=== PATIENT | female | born 1960 | race Hispanic/Latino ===

== ENCOUNTER 2018-10-21 21:04 | Emergency (ER) | payer BC, SELFPAY ==
[2018-10-21 23:17] LABS: #Basophils 0.1 thou/uL (0.0-0.2); #Eosinphils 0.1 thou/uL (0.0-0.7); #Lymphocytes 3.4 thou/uL (1.20-3.40); #Monocytes 0.5 thou/uL (0.11-0.59); #Neutrophils 4.7 thou/uL (1.40-6.50); %Basophils 0.8 % (0.0-1.0); %Eosinophils 1.6 % (0.0-10.0); %Lymphocytes 38.3 % (21.0-51.0); %Monocytes 5.7 % (0.0-10.0); %Neutrophils 53.6 % (42.0-75.0); Hemoglobin 12.3 g/dL (12.0-16.0); Mean Corpuscular HGB CONC 33.7 g/dL (32.0-36.0); Mean Corpuscular Hemoglobin 27.7 pg (27.0-31.0); Mean Corpuscular Volume 82.1 fL (78.0-98.0); Mean Platelet Volume 7.5 fL (7.4-10.4); Platelet Count 249 thou/uL (130-400); RBC Distribution Width 12.4 % (11.5-14.5); Red Blood Cell (RBC) Count 4.45 mill/uL (4.20-5.40); White Blood Cell (WBC) Count 8.8 thou/uL (4.8-10.8)
[2018-10-21 23:43] LABS: ALT (SGPT) 13 U/L (8-55); AST (SGOT) 19 U/L (5-34); Albumin 3.7 g/dL (3.5-5.0); Alkaline Phosphatase 95 U/L (40-150); Anion Gap 12 mmol/L (10-20); BUN (Urea Nitrogen) 13 mg/dL (9.8-20.1); Bilirubin, Total 0.4 mg/dL (0.2-1.2); Calc. Creatinine Clearance 0 mL/min (70-130); Calcium 9.6 mg/dL (7.8-10.44); Carbon Dioxide 25 mmol/L (22-29); Chloride 98 mmol/L (98-107); Estimated GFR-MDRD 85; Globulin 3.4 g/dL (2.4-3.5); Glucose 156 mg/dL (70-105); Lipase 18 U/L (8-78); Potassium 4.1 mmol/L (3.5-5.1); Protein, Total 7.1 g/dL (6.0-8.3); Sodium 131 mmol/L (136-145)
--- NOTE | 2018-10-21 23:45 | RAD ---
LEFT SHOULDER THREE VIEWS: 10/21/18 HISTORY: 57-year-old female with history of left shoulder and arm pain. FINDINGS/IMPRESSION: Degenerative changes of the left AC joint and glenohumeral joint without acute fracture or dislocatio n or other acute process. POS: LINDA
--- NOTE | 2018-10-21 23:59 | CT ---
ABDOMEN AND PELVIC CT SCAN WITH IV CONTRAST: 10/21/18 HISTORY: 57-year-old female with history of left sided abdominal pain from the feeding tube. In the left lung base there is some patchy ground glass opacity changes, this is nonspecific but coul d possibly represent some mild or early pneumonitis. Status post cholecystectomy. Liver, pancreas, an d spleen appear unremarkable. There is a tiny punctate calcific focus in the left kidney possibly a s mall renal vascular calcification or a nonobstructing left renal calculus. No evidence for obstructin g calculus. Gastrostomy tube in place with the tip in the region of the stomach. Urinary bladder a nd uterus and adnexal regions appear unremarkable. No free intraperitoneal fluid or evidence for miranda opathy or abscess. IMPRESSION: Minimal patchy ground glass opacity changes in the left lower lobe, nonspecific which could conceivab ly represent a small or early patch of pneumonia or pneumonitis. Tiny left renal calcification possib ly a vascular calcification or tiny nonobstructing renal calculus. Gastrostomy tube in place within t he stomach. Postop cholecystectomy. No CT evidence for acute appendicitis although a normal appendix is not anatomically demonstrated. No other significant acute process. POS: LINDA
[2018-10-22 00:39] LABS: Bilirubin Negative (Negative); Blood, Urine Trace (Negative); Clarity CLEAR (Clear); Glucose, Urine (Dipstick) Negative (Negative); Leukocyte Large (Negative); Nitrite Negative (Negative); Protein, Urine (Dipstick) Negative (Neg-Trace); Specific Gravity, Urine 1.033 (1.002-1.036); Urobilinogen 0.2 mg/dL (0.2-1.0); pH, Urine 6.5 (5.0-9.0)
[2018-10-22 00:41] LABS: Bacteria/HPF None Seen HPF (None Seen); Hyaline Casts/LPF 0-3 HYALINE CAST LPF (0-3 Hyaline); Pathc Cast-AUWi Flag 0.43 (0-2.49); Squamous Epithelial 0-3 HPF (0-3)
== END 2018-10-22 01:27 | disposition home or self-care (01) ==
LOC: ERS 21:04
DX: J18.9 Pneumonia, unspecified organism (principal); M19.012 Primary osteoarthritis, left shoulder; N39.0 Urinary tract infection, site not specified; E11.9 Type 2 diabetes mellitus without complications; E78.5 Hyperlipidemia, unspecified; I10 Essential (primary) hypertension; F41.9 Anxiety disorder, unspecified; Z79.84 Long term (current) use of oral hypoglycemic drugs; Z79.899 Other long term (current) drug therapy
CPT/HCPCS: 74177; 80053; 81003; 81015; 83690; 85025; 87086

== ENCOUNTER 2021-02-01 13:09 | Inpatient (IN) | payer SELFPAY ==
[2021-02-01 15:00] LABS: #Basophils 0.1 thou/uL (0.0-0.2); #Eosinphils 0.2 thou/uL (0.0-0.7); #Lymphocytes 3.7 thou/uL (1.20-3.40); #Monocytes 0.5 thou/uL (0.11-0.59); #Neutrophils 4.8 thou/uL (1.40-6.50); %Basophils 1.2 % (0.0-1.0); %Eosinophils 1.7 % (0.0-10.0); %Lymphocytes 39.8 % (21.0-51.0); %Monocytes 5.3 % (0.0-10.0); %Neutrophils 52.1 % (42.0-75.0); Mean Corpuscular HGB CONC 31.8 g/dL (32.0-36.0); Mean Corpuscular Hemoglobin 26.9 pg (27.0-31.0); Mean Corpuscular Volume 84.6 fL (78.0-98.0); Platelet Count 322 thou/uL (130-400); RBC Distribution Width 13.2 % (11.5-14.5); Red Blood Cell (RBC) Count 5.21 mill/uL (4.20-5.40); White Blood Cell (WBC) Count 9.3 thou/uL (4.8-10.8)
[2021-02-01 15:20] LABS: ALT (SGPT) 16 U/L (8-55); AST (SGOT) 20 U/L (5-34); Albumin 4.1 g/dL (3.5-5.0); Alkaline Phosphatase 110 U/L (40-110); Anion Gap 13 mmol/L (10-20); BUN (Urea Nitrogen) 33 mg/dL (9.8-20.1); Bilirubin, Total 0.6 mg/dL (0.2-1.2); Calc. Creatinine Clearance 0 mL/min (70-130); Calcium 9.6 mg/dL (7.8-10.44); Carbon Dioxide 28 mmol/L (22-29); Chloride 103 mmol/L (98-107); Glucose 115 mg/dL (70-105); Potassium 4.3 mmol/L (3.5-5.1); Protein, Total 8.1 g/dL (6.0-8.3); Sodium 140 mmol/L (136-145)
[2021-02-01 16:34] LABS: Bacteria/HPF None Seen HPF (None Seen); Bilirubin Negative (Negative); Blood, Urine Negative (Negative); Clarity Clear (Clear); Glucose, Urine (Dipstick) 150 mg/dL (Negative); Ketone, Urine 10 mg/dL (Negative); Leukocyte 25 Leu/uL (Negative); Nitrite Negative (Negative); Protein, Urine (Dipstick) Negative (Neg-Trace); RBC/HPF 0-3 HPF (0-3); Specific Gravity, Urine 1.028 (1.002-1.036); Squamous Epithelial 0-3 HPF (0-3); Urobilinogen Normal mg/dL (Less than 2); WBC/HPF 0-3 HPF (0-3); pH, Urine 5.5 (5.0-9.0)
[2021-02-01] MEDS ORDERED: Acetaminophen 650 MG Suppository PR PRN (17:42)
[2021-02-01] MEDS ORDERED: Dextrose 5% in Water 1,000 ML IV PRN (18:00)
[2021-02-01] MEDS ORDERED: Dextrose 50% Abboject 50 ML SYRINGE SLOW IVP PRN (18:00)
[2021-02-01] MEDS ORDERED: Ketorolac Tromethamine 30 MG/ML VIAL ONE (18:39)
[2021-02-01] MEDS ORDERED: Famotidine 20 MG TAB PO SCH (21:00)
[2021-02-01] MEDS ORDERED: Ketorolac Tromethamine 30 MG/ML VIAL IVP SCH (22:00)
[2021-02-01] MEDS ORDERED: Scopolamine 1.5 mg/72 hour Patch TD SCH (22:00)
[2021-02-02] MEDS ORDERED: Aspirin 300 MG Suppository PR SCH (00:15)
[2021-02-02 02:48] VITALS: BMI 21.9
[2021-02-02 04:30] LABS: SARS-CoV-2 PCR by NAA Not Detected (NotDetected)
[2021-02-02] MEDS: Dextrose 5 %-0.45 % NaCl 1,000 ML IV SCH (05:13)
[2021-02-02 05:44] LABS: #Basophils 0.1 thou/uL (0.0-0.2); #Eosinphils 0.2 thou/uL (0.0-0.7); #Lymphocytes 4.4 thou/uL (1.20-3.40); #Monocytes 0.6 thou/uL (0.11-0.59); #Neutrophils 4.7 thou/uL (1.40-6.50); %Basophils 0.8 % (0.0-1.0); %Eosinophils 1.6 % (0.0-10.0); %Lymphocytes 44.3 % (21.0-51.0); %Neutrophils 47.4 % (42.0-75.0); Hemoglobin 13.9 g/dL (12.0-16.0); Mean Corpuscular HGB CONC 32.6 g/dL (32.0-36.0); Mean Corpuscular Hemoglobin 27.2 pg (27.0-31.0); Mean Corpuscular Volume 83.5 fL (78.0-98.0); Mean Platelet Volume 8.3 fL (7.4-10.4); Platelet Count 321 thou/uL (130-400); RBC Distribution Width 13.3 % (11.5-14.5); Red Blood Cell (RBC) Count 5.12 mill/uL (4.20-5.40); White Blood Cell (WBC) Count 9.9 thou/uL (4.8-10.8)
[2021-02-02 06:00] LABS: Anion Gap 19 mmol/L (10-20); BUN (Urea Nitrogen) 42 mg/dL (9.8-20.1); Calc. Creatinine Clearance 54 mL/min (70-130); Calcium 9.5 mg/dL (7.8-10.44); Carbon Dioxide 21 mmol/L (22-29); Chloride 104 mmol/L (98-107); Cholesterol 194 mg/dl (< 200 Desired); Glucose 110 mg/dL (70-105); HDL Cholesterol 48 mg/dL (>60 Neg Risk); LDL Cholesterol, Calculated 126 mg/dL; Potassium 3.9 mmol/L (3.5-5.1); Sodium 140 mmol/L (136-145); Triglycerides 100 mg/dL (Less than 150)
[2021-02-02] MEDS ORDERED: Aspirin 81 mg Enteric Coated Tablet PO SCH (09:00)
[2021-02-02] MEDS ORDERED: Aspirin Chewable 81 MG TAB PER TUBE SCH (09:15)
[2021-02-02] MEDS: Famotidine/PF 20 mg/2ml Vial SLOW IVP SCH ×2 (09:21→22:10)
[2021-02-02] MEDS: HumaLOG 300 UNITS/3 ML VIAL SC PRN ×2 (12:53→18:30)
[2021-02-02] MEDS: Metoclopramide HCl 10 MG/2 ML VIAL IVP SCH (18:24)
[2021-02-02] MEDS: Acetaminophen 325 MG TAB PO PRN (23:36)
[2021-02-03] MEDS: Metoclopramide HCl 10 MG/2 ML VIAL IVP SCH ×2 (02:04→08:50)
[2021-02-03] MEDS: HumaLOG 300 UNITS/3 ML VIAL SC PRN ×6 (02:04→22:03)
[2021-02-03] MEDS: Dextrose 5 %-0.45 % NaCl 1,000 ML IV SCH (03:26)
[2021-02-03] MEDS: Sodium Chloride 0.9% 1,000 ML IV SCH (04:07)
[2021-02-03 06:02] LABS: #Lymphocytes 2.1 thou/uL (1.20-3.40); #Monocytes 1.1 thou/uL (0.11-0.59); #Neutrophils 12.6 thou/uL (1.40-6.50); %Basophils 0.2 % (0.0-1.0); %Lymphocytes 13.5 % (21.0-51.0); %Neutrophils 79.3 % (42.0-75.0); Hemoglobin 13.1 g/dL (12.0-16.0); Mean Corpuscular HGB CONC 32.8 g/dL (32.0-36.0); Mean Corpuscular Hemoglobin 27.5 pg (27.0-31.0); Mean Corpuscular Volume 84.1 fL (78.0-98.0); Mean Platelet Volume 8.9 fL (7.4-10.4); Platelet Count 265 thou/uL (130-400); RBC Distribution Width 13.3 % (11.5-14.5); Red Blood Cell (RBC) Count 4.75 mill/uL (4.20-5.40); White Blood Cell (WBC) Count 15.9 thou/uL (4.8-10.8)
[2021-02-03 06:18] LABS: Anion Gap 17 mmol/L (10-20); BUN (Urea Nitrogen) 27 mg/dL (9.8-20.1); Bilirubin, Total 1.1 mg/dL (0.2-1.2); Calc. Creatinine Clearance 58 mL/min (70-130); Calcium 8.8 mg/dL (7.8-10.44); Carbon Dioxide 20 mmol/L (22-29); Chloride 104 mmol/L (98-107); Glucose 291 mg/dL (70-105); Potassium 3.9 mmol/L (3.5-5.1); Sodium 137 mmol/L (136-145)
[2021-02-03 06:19] LABS: ALT (SGPT) 15 U/L (8-55); AST (SGOT) 17 U/L (5-34); Albumin 3.7 g/dL (3.5-5.0); Alkaline Phosphatase 115 U/L (40-110); Globulin 4.1 g/dL (2.4-3.5); Lipase 10 U/L (8-78); Magnesium 1.9 mg/dL (1.6-2.6); Phosphorus 2.5 mg/dL (2.3-4.7); Protein, Total 7.8 g/dL (6.0-8.3)
[2021-02-03] MEDS: Aspirin Chewable 81 MG TAB PER TUBE SCH ×2 (08:47→13:54)
[2021-02-03] MEDS: Famotidine/PF 20 mg/2ml Vial SLOW IVP SCH (08:50)
[2021-02-03] MEDS ORDERED: Iopamidol-370 76% 500 ML 1 ML ONE (09:20)
[2021-02-03] MEDS: VANCOMYCIN 1.25 GM/250 ML BAG 1.25 GM in Premix Bag 1 BAG IVPB SCH (13:50)
[2021-02-03] MEDS: Acetaminophen 325 MG TAB PO PRN (13:54)
[2021-02-03] MEDS: MEROPENEM 1 GM/50 ML 1 GM in Premix Bag 1 BAG IVPB SCH ×2 (15:38→23:50)
[2021-02-03] MEDS: Heparin 5,000 UNITS/ML VIAL SC SCH (22:11)
[2021-02-03] MEDS: Pantoprazole 40 MG VIAL IVP SCH (22:13)
[2021-02-03] MEDS: Metoprolol Tartrate 25 MG TAB PO SCH (22:20)
[2021-02-04 04:57] LABS: #Basophils 0.1 thou/uL (0.0-0.2); #Eosinphils 0.1 thou/uL (0.0-0.7); #Lymphocytes 3.5 thou/uL (1.20-3.40); #Monocytes 0.9 thou/uL (0.11-0.59); #Neutrophils 12.3 thou/uL (1.40-6.50); %Basophils 0.3 % (0.0-1.0); %Eosinophils 0.4 % (0.0-10.0); %Lymphocytes 20.6 % (21.0-51.0); %Monocytes 5.6 % (0.0-10.0); %Neutrophils 73.1 % (42.0-75.0); Hemoglobin 11.3 g/dL (12.0-16.0); Mean Corpuscular HGB CONC 32.4 g/dL (32.0-36.0); Mean Corpuscular Hemoglobin 27.6 pg (27.0-31.0); Mean Corpuscular Volume 85.2 fL (78.0-98.0); Mean Platelet Volume 8.9 fL (7.4-10.4); Platelet Count 229 thou/uL (130-400); RBC Distribution Width 13.2 % (11.5-14.5); Red Blood Cell (RBC) Count 4.11 mill/uL (4.20-5.40); White Blood Cell (WBC) Count 16.8 thou/uL (4.8-10.8)
[2021-02-04 05:16] LABS: ALT (SGPT) 10 U/L (8-55); AST (SGOT) 12 U/L (5-34); Albumin 3.2 g/dL (3.5-5.0); Alkaline Phosphatase 92 U/L (40-110); Anion Gap 13 mmol/L (10-20); BUN (Urea Nitrogen) 19 mg/dL (9.8-20.1); Bilirubin, Total 0.7 mg/dL (0.2-1.2); Calc. Creatinine Clearance 66 mL/min (70-130); Calcium 8.6 mg/dL (7.8-10.44); Carbon Dioxide 24 mmol/L (22-29); Chloride 107 mmol/L (98-107); Globulin 3.5 g/dL (2.4-3.5); Glucose 286 mg/dL (70-105); Potassium 3.8 mmol/L (3.5-5.1); Protein, Total 6.7 g/dL (6.0-8.3); Sodium 140 mmol/L (136-145)
[2021-02-04] MEDS: MEROPENEM 1 GM/50 ML 1 GM in Premix Bag 1 BAG IVPB SCH ×3 (05:47→21:28)
[2021-02-04] MEDS: Sodium Chloride 0.9% 1,000 ML IV SCH ×2 (05:54→15:13)
[2021-02-04] MEDS: HumaLOG 300 UNITS/3 ML VIAL SC PRN ×3 (09:02→17:35)
[2021-02-04] MEDS ORDERED: Lantus 1000 UNITS/10 ML VIAL SC SCH ×2 (09:30)
[2021-02-04] MEDS: Heparin 5,000 UNITS/ML VIAL SC SCH ×2 (09:34→21:29)
[2021-02-04] MEDS: Acetaminophen 325 MG TAB PO PRN ×2 (09:41→21:34)
[2021-02-04] MEDS: Metoprolol Tartrate 25 MG TAB PO SCH ×2 (09:41→21:29)
[2021-02-04] MEDS: Aspirin Chewable 81 MG TAB PER TUBE SCH (09:41)
[2021-02-04] MEDS: Pantoprazole 40 MG VIAL IVP SCH ×2 (09:46→21:29)
[2021-02-04] MEDS: VANCOMYCIN 1.25 GM/250 ML BAG 1.25 GM in Premix Bag 1 BAG IVPB SCH (13:20)
[2021-02-05] MEDS: HumaLOG 300 UNITS/3 ML VIAL SC PRN ×2 (00:12→06:01)
[2021-02-05 05:01] LABS: #Basophils 0.1 thou/uL (0.0-0.2); #Eosinphils 0.2 thou/uL (0.0-0.7); #Lymphocytes 2.7 thou/uL (1.20-3.40); #Monocytes 0.6 thou/uL (0.11-0.59); #Neutrophils 6.8 thou/uL (1.40-6.50); %Basophils 0.7 % (0.0-1.0); %Eosinophils 2.1 % (0.0-10.0); %Lymphocytes 25.9 % (21.0-51.0); %Monocytes 5.5 % (0.0-10.0); %Neutrophils 65.7 % (42.0-75.0); Hemoglobin 10.9 g/dL (12.0-16.0); Mean Corpuscular HGB CONC 31.1 g/dL (32.0-36.0); Mean Corpuscular Hemoglobin 26.7 pg (27.0-31.0); Mean Corpuscular Volume 85.7 fL (78.0-98.0); Mean Platelet Volume 8.5 fL (7.4-10.4); Platelet Count 226 thou/uL (130-400); RBC Distribution Width 13.4 % (11.5-14.5); Red Blood Cell (RBC) Count 4.07 mill/uL (4.20-5.40); White Blood Cell (WBC) Count 10.3 thou/uL (4.8-10.8)
[2021-02-05 05:28] LABS: Anion Gap 10 mmol/L (10-20); BUN (Urea Nitrogen) 17 mg/dL (9.8-20.1); Calc. Creatinine Clearance 74 mL/min (70-130); Calcium 8.4 mg/dL (7.8-10.44); Carbon Dioxide 25 mmol/L (22-29); Chloride 109 mmol/L (98-107); Glucose 240 mg/dL (70-105); Potassium 3.9 mmol/L (3.5-5.1); Sodium 140 mmol/L (136-145)
[2021-02-05] MEDS: MEROPENEM 1 GM/50 ML 1 GM in Premix Bag 1 BAG IVPB SCH ×2 (05:59→14:01)
[2021-02-05] MEDS ORDERED: Insulin Glargine 10 UNITS in Pre-Filled Syringe 1 EACH SC SCH (09:00)
[2021-02-05] MEDS ORDERED: Lantus 1000 UNITS/10 ML VIAL SC SCH (09:00)
[2021-02-05] MEDS ORDERED: Insulin Glargine 15 UNITS in Pre-Filled Syringe 1 EACH SC SCH (09:00)
[2021-02-05] MEDS: Heparin 5,000 UNITS/ML VIAL SC SCH (10:08)
[2021-02-05] MEDS: Pantoprazole 40 MG VIAL IVP SCH (10:10)
[2021-02-05] MEDS: Metoprolol Tartrate 25 MG TAB PO SCH ×2 (10:10→16:11)
[2021-02-05] MEDS: Aspirin Chewable 81 MG TAB PER TUBE SCH ×2 (10:10→16:11)
[2021-02-05] MEDS: Acetaminophen 325 MG TAB PO PRN ×2 (10:11→17:43)
[2021-02-05] MEDS ORDERED: Sodium Bicarbonate Tab 325 MG TAB PER TUBE PRN (12:15)
[2021-02-05] MEDS ORDERED: Pancrelipase DR 12,000 1 CAP FS PRN (12:15)
[2021-02-05 15:34] VITALS: BP 151/83; TEMP 99.5
[2021-02-05] MEDS: Sodium Chloride 0.9% 1,000 ML IV SCH (16:17)
== END 2021-02-05 19:12 | disposition home or self-care (01) | DRG 64 ==
LOC: ERS 13:09 → OBSVTOIN 16:54 → ERHOLD 16:54 → 2SE 23:34
PROVIDERS: ADMIT Internal Medicine; ATTEND Internal Medicine
PROC: 0DH63UZ Insertion of Feeding Device into Stomach, Percutaneous Approach (ICD-10-PCS; principal; 2021-02-05)
PROC: 0DP6XUZ Removal of Feeding Device from Stomach, External Approach (ICD-10-PCS; 2021-02-05)
DX: I63.9 Cerebral infarction, unspecified (principal); J69.0 Pneumonitis due to inhalation of food and vomit; A41.9 Sepsis, unspecified organism; I69.354 Hemiplegia and hemiparesis following cerebral infarction affecting left non-dominant side; K94.23 Gastrostomy malfunction; K94.22 Gastrostomy infection; L03.311 Cellulitis of abdominal wall; I13.0 Hypertensive heart and chronic kidney disease with heart failure and stage 1 through stage 4 chronic kidney disease, or unspecified chronic kidney disease; E78.5 Hyperlipidemia, unspecified; F41.9 Anxiety disorder, unspecified; M19.90 Unspecified osteoarthritis, unspecified site; Z90.49 Acquired absence of other specified parts of digestive tract; I69.328 Other speech and language deficits following cerebral infarction; Z93.1 Gastrostomy status; R13.10 Dysphagia, unspecified; R20.0 Anesthesia of skin; E86.0 Dehydration; F32.9 Major depressive disorder, single episode, unspecified; E11.22 Type 2 diabetes mellitus with diabetic chronic kidney disease; N18.30 Chronic kidney disease, stage 3 unspecified; Y83.8 Other surgical procedures as the cause of abnormal reaction of the patient, or of later complication, without mention of misadventure at the time of the procedure; I51.7 Cardiomegaly; B96.5 Pseudomonas (aeruginosa) (mallei) (pseudomallei) as the cause of diseases classified elsewhere; Z91.14 Patient's other noncompliance with medication regimen; I50.9 Heart failure, unspecified; Z88.8 Allergy status to other drugs, medicaments and biological substances
CPT/HCPCS: 36415; 36416; 70450; 70551; 71045; 74018; 74177; 80048; 80053; 80061; 81003; 81015; 83690; 83735; 84100; 84484; 85025; 87070; 87077; 87186; 87205; 87635; 93005; 93306; 93880; 94640; C9113; J1644; J1815; J1885; J2185; J2765; J3370; J7620; Q9967; S0028; U0003; U0005

== ENCOUNTER 2021-04-08 21:42 | Inpatient (IN) | payer SELFPAY ==
[2021-04-08 22:17] LABS: #Basophils 0.2 thou/uL (0.0-0.2); #Eosinphils 0.2 thou/uL (0.0-0.7); #Lymphocytes 5.5 thou/uL (1.20-3.40); #Monocytes 0.6 thou/uL (0.11-0.59); #Neutrophils 5.6 thou/uL (1.40-6.50); %Basophils 1.3 % (0.0-1.0); %Eosinophils 1.6 % (0.0-10.0); %Lymphocytes 45.7 % (21.0-51.0); %Neutrophils 46.4 % (42.0-75.0); Hemoglobin 14.4 g/dL (12.0-16.0); Mean Corpuscular HGB CONC 32.1 g/dL (32.0-36.0); Mean Corpuscular Hemoglobin 26.5 pg (27.0-31.0); Mean Corpuscular Volume 82.5 fL (78.0-98.0); Platelet Count 327 thou/uL (130-400); RBC Distribution Width 13.3 % (11.5-14.5); Red Blood Cell (RBC) Count 5.45 mill/uL (4.20-5.40)
[2021-04-08 22:42] LABS: ALT (SGPT) 9 U/L (8-55); AST (SGOT) 15 U/L (5-34); Albumin 4.4 g/dL (3.5-5.0); Alkaline Phosphatase 94 U/L (40-110); Anion Gap 18 mmol/L (10-20); BUN (Urea Nitrogen) 87 mg/dL (9.8-20.1); Bilirubin, Total 0.4 mg/dL (0.2-1.2); Calc. Creatinine Clearance 0 mL/min (70-130); Calcium 10.1 mg/dL (7.8-10.44); Carbon Dioxide 25 mmol/L (22-29); Chloride 100 mmol/L (98-107); Globulin 4.2 g/dL (2.4-3.5); Glucose 140 mg/dL (70-105); Potassium 4.8 mmol/L (3.5-5.1); Protein, Total 8.6 g/dL (6.0-8.3); Sodium 138 mmol/L (136-145)
[2021-04-08] MEDS ORDERED: Ondansetron PF 4 MG/2 ML Vial ONE (23:00)
[2021-04-08] MEDS ORDERED: cefTRIAXone\\ROCEPHIN 2 GM VIAL ONE (23:23)
[2021-04-08 23:32] LABS: Bilirubin Negative (Negative); Blood, Urine Negative (Negative); Clarity Clear (Clear); Glucose, Urine (Dipstick) Normal (Negative); Ketone, Urine Negative (Negative); Leukocyte Negative Leu/uL (Negative); Nitrite Negative (Negative); Protein, Urine (Dipstick) 10 mg/dL (Neg-Trace); Specific Gravity, Urine 1.023 (1.002-1.036); Urobilinogen Normal mg/dL (Less than 2)
[2021-04-09] MEDS ORDERED: Azithromycin 500 MG VIAL ONE (00:05)
[2021-04-09 01:28] LABS: SARS-CoV-2 NAA Rapid Test Not Detected (NotDetected)
[2021-04-09] MEDS ORDERED: HumaLOG 300 UNITS/3 ML VIAL SC PRN (01:55)
[2021-04-09] MEDS ORDERED: Dextrose 50% Abboject 50 ML SYRINGE SLOW IVP PRN (01:55)
[2021-04-09] MEDS ORDERED: Dextrose 5% in Water 1,000 ML IV PRN (01:55)
[2021-04-09 02:11] VITALS: BMI 18.9
[2021-04-09] MEDS ORDERED: Vancomycin 1 GM in Premix Bag 1 BAG IVPB SCH (02:30)
[2021-04-09] MEDS ORDERED: Cefepime 1 GM in Sodium Chloride 0.9% 100 ML IVPB SCH (03:00)
[2021-04-09] MEDS: Sodium Chloride 0.9% 1,000 ML IV SCH ×2 (04:29→17:22)
[2021-04-09] MEDS: Piperacillin/Tazobactam 3.375 GM in Sodium Chloride 0.9% 100 ML IVPB SCH ×3 (04:30→21:05)
[2021-04-09 05:27] LABS: Anion Gap 10 mmol/L (10-20); BUN (Urea Nitrogen) 66 mg/dL (9.8-20.1); Calc. Creatinine Clearance 33 mL/min (70-130); Calcium 8.2 mg/dL (7.8-10.44); Carbon Dioxide 24 mmol/L (22-29); Chloride 108 mmol/L (98-107); Eosinophils 1 % (0-10); Glucose 117 mg/dL (70-105); Hypochromia SLIGHT = 6-15 cells (100X) (0-5/hpf); Lymphocytes 57 % (21-51); MDiff Complete? YES; Mean Corpuscular HGB CONC 32.7 g/dL (32.0-36.0); Mean Corpuscular Volume 82.8 fL (78.0-98.0); Mean Platelet Volume 8.2 fL (7.4-10.4); Monocytes 7 % (0-10); Neutrophil 35 % (42-75); Platelet Count 252 thou/uL (130-400); Platelet Morphology Comment Appears Adequate; Potassium 4.1 mmol/L (3.5-5.1); RBC Distribution Width 13.4 % (11.5-14.5); Red Blood Cell (RBC) Count 4.08 mill/uL (4.20-5.40); Sodium 138 mmol/L (136-145); White Blood Cell (WBC) Count 10.2 thou/uL (4.8-10.8)
[2021-04-09] MEDS: Ondansetron PF 4 MG/2 ML Vial IVP PRN (14:45)
[2021-04-09] MEDS ORDERED: Scopolamine 1.5 mg/72 hour Patch TD SCH (17:00)
[2021-04-09] MEDS ORDERED: Pantoprazole 40 MG GRANULES PACKET PER TUBE SCH (17:00)
[2021-04-09] MEDS: Metoclopramide 10 MG/10 ML UDCUP PER TUBE SCH ×2 (17:22→21:06)
[2021-04-10] MEDS: Vancomycin HCl 500 MG in Sodium Chloride 0.9% 100 ML IVPB SCH (02:52)
[2021-04-10] MEDS: Ondansetron PF 4 MG/2 ML Vial IVP PRN (03:50)
[2021-04-10] MEDS: Sodium Chloride 0.9% 1,000 ML IV SCH ×3 (04:41→23:01)
[2021-04-10] MEDS: Piperacillin/Tazobactam 3.375 GM in Sodium Chloride 0.9% 100 ML IVPB SCH ×3 (04:41→20:10)
[2021-04-10 05:43] LABS: #Basophils 0.1 thou/uL (0.0-0.2); #Eosinphils 0.3 thou/uL (0.0-0.7); #Lymphocytes 4.2 thou/uL (1.20-3.40); #Monocytes 0.7 thou/uL (0.11-0.59); #Neutrophils 4.6 thou/uL (1.40-6.50); %Basophils 0.8 % (0.0-1.0); %Eosinophils 2.7 % (0.0-10.0); %Monocytes 6.6 % (0.0-10.0); %Neutrophils 46.9 % (42.0-75.0); Hemoglobin 10.6 g/dL (12.0-16.0); Mean Corpuscular HGB CONC 33.8 g/dL (32.0-36.0); Mean Corpuscular Hemoglobin 28.5 pg (27.0-31.0); Mean Corpuscular Volume 84.1 fL (78.0-98.0); Platelet Count 222 thou/uL (130-400); RBC Distribution Width 13.1 % (11.5-14.5); Red Blood Cell (RBC) Count 3.74 mill/uL (4.20-5.40); White Blood Cell (WBC) Count 9.9 thou/uL (4.8-10.8)
[2021-04-10] MEDS: HumaLOG 300 UNITS/3 ML VIAL SC PRN ×2 (05:48→11:26)
[2021-04-10 06:00] LABS: Anion Gap 8 mmol/L (10-20); BUN (Urea Nitrogen) 24 mg/dL (9.8-20.1); Calc. Creatinine Clearance 59 mL/min (70-130); Calcium 8.1 mg/dL (7.8-10.44); Carbon Dioxide 26 mmol/L (22-29); Chloride 105 mmol/L (98-107); Glucose 177 mg/dL (70-105); Potassium 3.7 mmol/L (3.5-5.1); Sodium 135 mmol/L (136-145)
[2021-04-10] MEDS: Metoclopramide 10 MG/10 ML UDCUP PER TUBE SCH ×4 (08:13→20:15)
[2021-04-10] MEDS: Pantoprazole 40 MG GRANULES PACKET PER TUBE SCH (08:13)
[2021-04-10] MEDS: Acetaminophen 325 MG TAB PO PRN ×2 (11:30→16:16)
[2021-04-10] MEDS ORDERED: Ketorolac Tromethamine 30 MG/ML VIAL IVP SCH (19:15)
[2021-04-11] MEDS ORDERED: Ketorolac Tromethamine 30 MG/ML VIAL IVP PRN (01:00)
[2021-04-11] MEDS: Vancomycin HCl 500 MG in Sodium Chloride 0.9% 100 ML IVPB SCH (02:48)
[2021-04-11 02:52] LABS: Vancomycin, Trough 4.2 ug/mL
[2021-04-11 02:55] LABS: Band 2 % (5-11); Hemoglobin 10.6 g/dL (12.0-16.0); Hypochromia SLIGHT = 6-15 cells (100X) (0-5/hpf); Lymphocytes 43 % (21-51); MDiff Complete? YES; Mean Corpuscular HGB CONC 33.2 g/dL (32.0-36.0); Mean Corpuscular Hemoglobin 27.9 pg (27.0-31.0); Mean Corpuscular Volume 83.9 fL (78.0-98.0); Mean Platelet Volume 8.2 fL (7.4-10.4); Monocytes 8 % (0-10); Neutrophil 44 % (42-75); Platelet Count 221 thou/uL (130-400); Platelet Morphology Comment Appears Adequate; Reactive Lymphocytes 3 % (0-10); White Blood Cell (WBC) Count 8.6 thou/uL (4.8-10.8)
[2021-04-11 03:21] LABS: Anion Gap 9 mmol/L (10-20); BUN (Urea Nitrogen) 17 mg/dL (9.8-20.1); Calc. Creatinine Clearance 55 mL/min (70-130); Calcium 8.1 mg/dL (7.8-10.44); Carbon Dioxide 27 mmol/L (22-29); Chloride 104 mmol/L (98-107); Glucose 179 mg/dL (70-105); Potassium 4.2 mmol/L (3.5-5.1); Sodium 136 mmol/L (136-145)
[2021-04-11] MEDS ORDERED: Vancomycin HCl 500 MG in Sodium Chloride 0.9% 100 ML IVPB SCH ×2 (04:30→15:00)
[2021-04-11] MEDS: Piperacillin/Tazobactam 3.375 GM in Sodium Chloride 0.9% 100 ML IVPB SCH ×2 (04:30→11:28)
[2021-04-11] MEDS: Metoclopramide 10 MG/10 ML UDCUP PER TUBE SCH ×2 (07:25→11:28)
[2021-04-11] MEDS: Pantoprazole 40 MG GRANULES PACKET PER TUBE SCH (07:25)
[2021-04-11] MEDS: Ondansetron PF 4 MG/2 ML Vial IVP PRN (10:38)
[2021-04-11] MEDS: HumaLOG 300 UNITS/3 ML VIAL SC PRN (11:00)
[2021-04-11 12:10] VITALS: BP 148/84; TEMP 97.3
[2021-04-11] MEDS: Sodium Chloride 0.9% 1,000 ML IV SCH (13:58)
== END 2021-04-11 15:16 | disposition home or self-care (01) | DRG 871 ==
LOC: ERS 21:42 → OBSVTOIN 04-09 00:02 → 2SW 04-09 00:02 → 2SE 04-09 02:56
PROVIDERS: ADMIT Internal Medicine; ATTEND Family Medicine
DX: A41.9 Sepsis, unspecified organism (principal); J69.0 Pneumonitis due to inhalation of food and vomit; Z20.822 Contact with and (suspected) exposure to COVID-19; N17.9 Acute kidney failure, unspecified; E11.9 Type 2 diabetes mellitus without complications; E78.5 Hyperlipidemia, unspecified; E78.00 Pure hypercholesterolemia, unspecified; I10 Essential (primary) hypertension; M19.90 Unspecified osteoarthritis, unspecified site; F41.9 Anxiety disorder, unspecified; K21.9 Gastro-esophageal reflux disease without esophagitis; R65.20 Severe sepsis without septic shock; I69.954 Hemiplegia and hemiparesis following unspecified cerebrovascular disease affecting left non-dominant side; Z90.49 Acquired absence of other specified parts of digestive tract; Z88.8 Allergy status to other drugs, medicaments and biological substances; Z79.82 Long term (current) use of aspirin; Z79.4 Long term (current) use of insulin; Z79.899 Other long term (current) drug therapy; I69.928 Other speech and language deficits following unspecified cerebrovascular disease; I69.991 Dysphagia following unspecified cerebrovascular disease; Z93.1 Gastrostomy status
CPT/HCPCS: 0240U; 36415; 36416; 51701; 71045; 71250; 80048; 80053; 80202; 81003; 83605; 83880; 84484; 85025; 87040; 87070; 87086; 87205; 93005; 94760; 96365; 96367; 96375; G0378; J0456; J0696; J1815; J1885; J2405; J2543; J3370; J3490

== ENCOUNTER 2022-04-02 23:08 | Inpatient (IN) | payer MEDICAID, SELFPAY ==
[2022-04-02] MEDS ORDERED: Haloperidol Lactate 5 MG/ML VIAL ONE (23:12)
[2022-04-02] MEDS ORDERED: Ketamine 50 MG/ML (10ML VIAL) ONE (23:19)
[2022-04-02] MEDS ORDERED: Lorazepam 2 MG/ML VIAL ONE (23:26)
[2022-04-02] MEDS ORDERED: diphenhydrAMINE 50 MG/ML VIAL ONE (23:26)
[2022-04-03 01:13] LABS: Hemoglobin 10.6 g/dL (12.0-16.0); Mean Corpuscular HGB CONC 31.6 g/dL (32.0-36.0); Mean Corpuscular Hemoglobin 25.9 pg (27.0-31.0); Mean Corpuscular Volume 82.1 fL (78.0-98.0); Mean Platelet Volume 7.9 fL (7.4-10.4); Platelet Count 322 thou/uL (130-400); RBC Distribution Width 12.8 % (11.5-14.5); Red Blood Cell (RBC) Count 4.09 mill/uL (4.20-5.40)
[2022-04-03 01:18] LABS: Actual Bicarbonate (HCO3v) 25 mEq/L (22-28); Analyzer IN Cardio ER; Base Excess 0.3 mEq/L (-2.0 to +3.0); Calcium, Ionized (venous) 1.05 mmol/L (1.16-1.32); Chloride (VBG) 102 mmol/L (98-106); Hemoglobin (Hb) 11.8 g/dL (11.7-16.0); Potassium (VBG) 3.76 mmol/L (3.70-5.30); Sodium 136.5 mmol/L (133-146); pH (venous) 7.43 (7.32-7.43)
[2022-04-03 01:19] LABS: ALT (SGPT) 7 U/L (8-55); AST (SGOT) 19 U/L (5-34); Albumin 3.3 g/dL (3.5-5.0); Alkaline Phosphatase 88 U/L (40-110); Anion Gap 16 mmol/L (10-20); BUN (Urea Nitrogen) 20 mg/dL (9.8-20.1); Bilirubin, Total 0.5 mg/dL (0.2-1.2); Calc. Creatinine Clearance 0 mL/min (70-130); Carbon Dioxide 24 mmol/L (22-29); Chloride 102 mmol/L (98-107); Globulin 3.8 g/dL (2.4-3.5); Glucose 325 mg/dL (70-105); INR-International Normal Ratio 1.1; Protein, Total 7.1 g/dL (6.0-8.3); Prothrombin Time 14.4 sec (12.0-14.7); Sodium 138 mmol/L (136-145)
[2022-04-03 01:21] LABS: Acetaminophen Less than 10.0 mcg/mL (10.0-30.0); Alcohol Less than 10 mg/dL (Less than 10); PTT 26.2 sec (22.9-36.1); Salicylate Less than 8.0 mg/dL (15.0-30.0)
[2022-04-03 01:23] LABS: Bilirubin Negative (Negative); Blood, Urine Negative (Negative); Clarity Clear (Clear); Glucose, Urine (Dipstick) Greater than 1000 mg/dL (Negative); Ketone, Urine Trace mg/dL (Negative); Leukocyte Negative Leu/uL (Negative); Nitrite Negative (Negative); Protein, Urine (Dipstick) 20 mg/dL (Neg-Trace); Specific Gravity, Urine 1.032 (1.002-1.036); Urobilinogen Normal mg/dL (Less than 2); pH, Urine 5.5 (5.0-9.0)
[2022-04-03 01:27] LABS: Band 18 % (5-11); Lymphocytes 8 % (21-51); MDiff Complete? YES; Monocytes 4 % (0-10); Neutrophil 69 % (42-75); White Blood Cell (WBC) Count 20.2 thou/uL (4.8-10.8)
[2022-04-03 01:28] LABS: Amphetamine Not Detected (NotDetected); Barbiturates Screen Not Detected (NotDetected); Benzodiazepine Screen Not Detected (NotDetected); Cocaine Metabolite Screen Not Detected (NotDetected); Methadone Not Detected (NotDetected); Methamphetamine Not Detected (NotDetected); Opiate Screen Not Detected (NotDetected); Oxycodone Screen Not Detected (NotDetected); Phencyclidine (PCP) Not Detected (NotDetected); THC/Cannabinoid Screen Not Detected (NotDetected); Tricyclic Screen Not Detected (NotDetected)
[2022-04-03 01:41] LABS: CKMB 3.4 ng/mL (0-6.6)
[2022-04-03] MEDS ORDERED: Vancomycin 1 GM/200 ML BAG ONE (01:53)
[2022-04-03] MEDS ORDERED: Cefepime 2 GM VIAL ONE (01:53)
[2022-04-03] MEDS ORDERED: Aspirin Chewable 81 MG TAB ONE (02:04)
[2022-04-03] MEDS ORDERED: Acetaminophen 325 MG TAB PO PRN (04:58)
[2022-04-03] MEDS ORDERED: HYDROcodone/Acetaminophen 5/325 mg Tablet PO PRN (04:58)
[2022-04-03] MEDS ORDERED: Ondansetron ODT 4 MG TAB PO PRN (04:58)
[2022-04-03] MEDS ORDERED: Dextrose 5% in Water 1,000 ML IV PRN (05:14)
[2022-04-03] MEDS ORDERED: Dextrose 50% Abboject 50 ML SYRINGE SLOW IVP PRN (05:14)
[2022-04-03 05:23] LABS: Troponin I 0.232 ng/mL (< 0.028)
[2022-04-03 08:24] LABS: Troponin I 0.286 ng/mL (< 0.028)
[2022-04-03] MEDS ORDERED: Enoxaparin Sodium 40 MG/0.4 ML SYRINGE ONE (08:37)
[2022-04-03] MEDS: Enoxaparin Sodium 40 MG/0.4 ML SYRINGE SC SCH (08:42)
[2022-04-03 11:03] VITALS: BMI 18.8
[2022-04-03] MEDS ORDERED: Haloperidol Lactate 5 MG/ML VIAL IM SCH (11:09)
[2022-04-03] MEDS: Sodium Chloride 0.9% 1,000 ML IV SCH (11:12)
[2022-04-03] MEDS ORDERED: Haloperidol Lactate 5 MG/ML VIAL ONE (11:14)
[2022-04-03 12:37] LABS: SARS-CoV-2 NAA Rapid Test Not Detected (NotDetected)
[2022-04-03] MEDS: Cefepime 1 GM in Sodium Chloride 0.9% 100 ML IVPB SCH (15:13)
[2022-04-03] MEDS: Dicyclomine 10 MG CAP PO SCH (21:26)
[2022-04-04] MEDS: Sodium Chloride 0.9% 1,000 ML IV SCH (01:47)
[2022-04-04] MEDS: Cefepime 1 GM in Sodium Chloride 0.9% 100 ML IVPB SCH ×2 (01:47→15:40)
[2022-04-04 04:33] LABS: #Eosinphils 0.1 thou/uL (0.0-0.7); #Lymphocytes 3.6 thou/uL (1.20-3.40); #Monocytes 0.7 thou/uL (0.11-0.59); #Neutrophils 8.6 thou/uL (1.40-6.50); %Basophils 0.3 % (0.0-1.0); %Lymphocytes 27.8 % (21.0-51.0); %Monocytes 5.3 % (0.0-10.0); %Neutrophils 65.5 % (42.0-75.0); Hemoglobin 10.9 g/dL (12.0-16.0); Mean Corpuscular HGB CONC 31.4 g/dL (32.0-36.0); Mean Corpuscular Hemoglobin 26.2 pg (27.0-31.0); Mean Corpuscular Volume 83.5 fL (78.0-98.0); Platelet Count 290 thou/uL (130-400); RBC Distribution Width 12.9 % (11.5-14.5); Red Blood Cell (RBC) Count 4.16 mill/uL (4.20-5.40); White Blood Cell (WBC) Count 13.1 thou/uL (4.8-10.8)
[2022-04-04 04:50] LABS: Anion Gap 11 mmol/L (10-20); BUN (Urea Nitrogen) 11 mg/dL (9.8-20.1); Calc. Creatinine Clearance 71 mL/min (70-130); Calcium 8.6 mg/dL (7.8-10.44); Carbon Dioxide 25 mmol/L (22-29); Chloride 106 mmol/L (98-107); Glucose 152 mg/dL (70-105); Potassium 3.4 mmol/L (3.5-5.1); Sodium 139 mmol/L (136-145)
[2022-04-04 08:39] LABS: Troponin I 0.284 ng/mL (< 0.028)
[2022-04-04] MEDS: Enoxaparin Sodium 40 MG/0.4 ML SYRINGE SC SCH (10:17)
[2022-04-04] MEDS: Potassium Chloride 20 MEQ in Premix Bag 1 BAG IVPB SCH ×2 (10:17→12:38)
[2022-04-04] MEDS: Lisinopril 20 MG TAB PO SCH ×2 (10:18→12:44)
[2022-04-04] MEDS: Dicyclomine 10 MG CAP PO SCH ×4 (10:19→21:25)
[2022-04-04] MEDS: Lansoprazole 3 MG/ML ORAL SUSPENSION PER TUBE SCH ×2 (10:19→12:44)
[2022-04-04 10:31] LABS: Magnesium 1.6 mg/dL (1.6-2.6)
[2022-04-04] MEDS ORDERED: Scopolamine 1.5 mg/72 hour Patch TD SCH (10:45)
[2022-04-04] MEDS ORDERED: Magnesium 2 GM/50 ML(in water) 2 GM in Premix Bag 1 BAG IVPB SCH (12:00)
[2022-04-04] MEDS ORDERED: OLANZapine 10 MG VIAL IM SCH ×2 (14:00→23:30)
[2022-04-04] MEDS: hydrALAZINE 20 MG/ML VIAL SLOW IVP PRN (17:31)
[2022-04-04] MEDS ORDERED: Sterile Water 10 ML VIAL FS PRN (23:45)
[2022-04-05] MEDS: Cefepime 1 GM in Sodium Chloride 0.9% 100 ML IVPB SCH ×2 (02:46→15:18)
[2022-04-05] MEDS: hydrALAZINE 20 MG/ML VIAL SLOW IVP PRN (03:39)
[2022-04-05 04:33] LABS: #Basophils 0.1 thou/uL (0.0-0.2); #Eosinphils 0.1 thou/uL (0.0-0.7); #Lymphocytes 4.4 thou/uL (1.20-3.40); #Neutrophils 10.6 thou/uL (1.40-6.50); %Basophils 0.4 % (0.0-1.0); %Eosinophils 0.7 % (0.0-10.0); %Lymphocytes 27.4 % (21.0-51.0); %Neutrophils 65.6 % (42.0-75.0); Hemoglobin 12.6 g/dL (12.0-16.0); Mean Corpuscular HGB CONC 31.9 g/dL (32.0-36.0); Mean Corpuscular Hemoglobin 25.8 pg (27.0-31.0); Mean Corpuscular Volume 80.8 fL (78.0-98.0); Mean Platelet Volume 7.7 fL (7.4-10.4); Platelet Count 347 thou/uL (130-400); RBC Distribution Width 13.2 % (11.5-14.5); Red Blood Cell (RBC) Count 4.89 mill/uL (4.20-5.40); White Blood Cell (WBC) Count 16.2 thou/uL (4.8-10.8)
[2022-04-05] MEDS ORDERED: Lorazepam 2 MG/ML VIAL SLOW IVP SCH (05:00)
[2022-04-05 05:19] LABS: Anion Gap 20 mmol/L (10-20); BUN (Urea Nitrogen) 10 mg/dL (9.8-20.1); Calc. Creatinine Clearance 65 mL/min (70-130); Calcium 8.9 mg/dL (7.8-10.44); Carbon Dioxide 15 mmol/L (22-29); Chloride 103 mmol/L (98-107); Glucose 169 mg/dL (70-105); Magnesium 1.8 mg/dL (1.6-2.6); Potassium 3.6 mmol/L (3.5-5.1); Sodium 134 mmol/L (136-145)
[2022-04-05] MEDS: Lisinopril 20 MG TAB PO SCH (09:28)
[2022-04-05] MEDS: Dicyclomine 10 MG CAP PO SCH ×4 (09:28→21:11)
[2022-04-05] MEDS: Lansoprazole 3 MG/ML ORAL SUSPENSION PER TUBE SCH (09:28)
[2022-04-05] MEDS: Enoxaparin Sodium 40 MG/0.4 ML SYRINGE SC SCH (09:28)
[2022-04-05] MEDS: Dextrose 5 %-0.45 % NaCl 1,000 ML IV SCH ×2 (15:18→23:36)
[2022-04-05] MEDS: HumaLOG 300 UNITS/3 ML VIAL SC PRN ×2 (17:54→23:36)
[2022-04-06] MEDS: Cefepime 1 GM in Sodium Chloride 0.9% 100 ML IVPB SCH (02:29)
[2022-04-06] MEDS ORDERED: OLANZapine 10 MG VIAL IM SCH ×2 (03:00→20:30)
[2022-04-06] MEDS ORDERED: Sterile Water 20 ML VIAL FS SCH ×2 (03:15→20:45)
[2022-04-06] MEDS: HumaLOG 300 UNITS/3 ML VIAL SC PRN (06:07)
[2022-04-06 09:29] LABS: #Eosinphils 0.2 thou/uL (0.0-0.7); #Lymphocytes 3.1 thou/uL (1.20-3.40); #Monocytes 0.6 thou/uL (0.11-0.59); #Neutrophils 6.1 thou/uL (1.40-6.50); %Basophils 0.4 % (0.0-1.0); %Eosinophils 1.8 % (0.0-10.0); %Monocytes 5.8 % (0.0-10.0); %Neutrophils 61.1 % (42.0-75.0); Hemoglobin 11.8 g/dL (12.0-16.0); Mean Corpuscular HGB CONC 31.5 g/dL (32.0-36.0); Mean Corpuscular Hemoglobin 26.1 pg (27.0-31.0); Mean Platelet Volume 7.3 fL (7.4-10.4); Platelet Count 391 thou/uL (130-400); RBC Distribution Width 13.1 % (11.5-14.5); Red Blood Cell (RBC) Count 4.51 mill/uL (4.20-5.40)
[2022-04-06 09:48] LABS: Anion Gap 10 mmol/L (10-20); BUN (Urea Nitrogen) 10 mg/dL (9.8-20.1); Calc. Creatinine Clearance 65 mL/min (70-130); Calcium 8.9 mg/dL (7.8-10.44); Carbon Dioxide 27 mmol/L (22-29); Chloride 104 mmol/L (98-107); Glucose 183 mg/dL (70-105); Potassium 3.2 mmol/L (3.5-5.1); Sodium 138 mmol/L (136-145)
[2022-04-06] MEDS: Lisinopril 20 MG TAB PO SCH (10:01)
[2022-04-06] MEDS: Enoxaparin Sodium 40 MG/0.4 ML SYRINGE SC SCH (10:04)
[2022-04-06] MEDS: Dicyclomine 10 MG CAP PO SCH ×4 (10:05→22:13)
[2022-04-06] MEDS ORDERED: Metoprolol Tartrate 25 MG TAB PO SCH (11:15)
[2022-04-06] MEDS: Lansoprazole 3 MG/ML ORAL SUSPENSION PER TUBE SCH (11:48)
[2022-04-06] MEDS: Dextrose 5 %-0.45 % NaCl 1,000 ML IV SCH ×2 (11:48→17:17)
[2022-04-06] MEDS ORDERED: Potassium Chloride 20 MEQ TAB PO SCH (12:00)
[2022-04-06] MEDS ORDERED: Aspirin 81 mg Enteric Coated Tablet PO SCH (12:00)
[2022-04-06] MEDS ORDERED: Aspirin Chewable 81 MG TAB PO SCH (12:45)
[2022-04-06] MEDS ORDERED: Potassium Bicarbonate/Cit Ac 20 MEQ TAB PER TUBE SCH (14:00)
[2022-04-06] MEDS: Metoprolol Tartrate 25 MG TAB PO SCH (22:13)
[2022-04-07] MEDS: Dextrose 5 %-0.45 % NaCl 1,000 ML IV SCH ×2 (06:18→14:25)
[2022-04-07] MEDS: Aspirin Chewable 81 MG TAB PO SCH (08:17)
[2022-04-07] MEDS: Metoprolol Tartrate 25 MG TAB PO SCH ×2 (08:17→22:36)
[2022-04-07] MEDS: Lansoprazole 3 MG/ML ORAL SUSPENSION PER TUBE SCH (08:17)
[2022-04-07] MEDS: Dicyclomine 10 MG CAP PO SCH ×4 (08:17→22:35)
[2022-04-07] MEDS: Lisinopril 20 MG TAB PO SCH (08:17)
[2022-04-07] MEDS: Enoxaparin Sodium 40 MG/0.4 ML SYRINGE SC SCH (08:17)
[2022-04-07] MEDS ORDERED: Aspirin 81 mg Enteric Coated Tablet PO SCH (09:00)
[2022-04-07] MEDS ORDERED: Scopolamine 1.5 mg/72 hour Patch TD SCH (09:00)
[2022-04-07 09:42] LABS: #Eosinphils 0.2 thou/uL (0.0-0.7); #Lymphocytes 2.5 thou/uL (1.20-3.40); #Monocytes 0.6 thou/uL (0.11-0.59); #Neutrophils 5.4 thou/uL (1.40-6.50); %Basophils 0.5 % (0.0-1.0); %Eosinophils 2.5 % (0.0-10.0); %Lymphocytes 28.7 % (21.0-51.0); %Monocytes 6.3 % (0.0-10.0); Hemoglobin 11.3 g/dL (12.0-16.0); Mean Corpuscular HGB CONC 31.6 g/dL (32.0-36.0); Mean Corpuscular Hemoglobin 26.3 pg (27.0-31.0); Mean Platelet Volume 7.2 fL (7.4-10.4); Platelet Count 384 thou/uL (130-400); RBC Distribution Width 13.4 % (11.5-14.5); Red Blood Cell (RBC) Count 4.29 mill/uL (4.20-5.40); White Blood Cell (WBC) Count 8.7 thou/uL (4.8-10.8)
[2022-04-07 10:12] LABS: Anion Gap 8 mmol/L (10-20); BUN (Urea Nitrogen) 10 mg/dL (9.8-20.1); Calc. Creatinine Clearance 71 mL/min (70-130); Calcium 9.1 mg/dL (7.8-10.44); Carbon Dioxide 31 mmol/L (22-29); Cardiac Risk 4.5 (Less than 4.5); Chloride 104 mmol/L (98-107); Cholesterol 144 mg/dl (< 200 Desired); Glucose 220 mg/dL (70-105); HDL Cholesterol 32 mg/dL (>60 Neg Risk); Sodium 139 mmol/L (136-145)
[2022-04-07 10:16] LABS: LDL Cholesterol, Calculated 78 mg/dL
[2022-04-07 11:25] LABS: Triglycerides 162 mg/dL (Less than 150)
[2022-04-07] MEDS: HumaLOG 300 UNITS/3 ML VIAL SC PRN ×2 (12:39→17:31)
[2022-04-08 06:22] LABS: #Basophils 0.1 thou/uL (0.0-0.2); #Eosinphils 0.3 thou/uL (0.0-0.7); #Lymphocytes 3.6 thou/uL (1.20-3.40); #Monocytes 0.6 thou/uL (0.11-0.59); #Neutrophils 5.6 thou/uL (1.40-6.50); %Basophils 0.6 % (0.0-1.0); %Eosinophils 2.7 % (0.0-10.0); %Lymphocytes 35.7 % (21.0-51.0); %Monocytes 5.9 % (0.0-10.0); %Neutrophils 55.1 % (42.0-75.0); Hemoglobin 10.9 g/dL (12.0-16.0); Mean Corpuscular HGB CONC 30.8 g/dL (32.0-36.0); Mean Corpuscular Hemoglobin 25.9 pg (27.0-31.0); Mean Corpuscular Volume 84.1 fL (78.0-98.0); Mean Platelet Volume 7.5 fL (7.4-10.4); Platelet Count 362 thou/uL (130-400); RBC Distribution Width 13.9 % (11.5-14.5); White Blood Cell (WBC) Count 10.1 thou/uL (4.8-10.8)
[2022-04-08] MEDS: HumaLOG 300 UNITS/3 ML VIAL SC PRN (06:32)
[2022-04-08 06:42] LABS: Anion Gap 11 mmol/L (10-20); BUN (Urea Nitrogen) 14 mg/dL (9.8-20.1); Calc. Creatinine Clearance 69 mL/min (70-130); Calcium 8.6 mg/dL (7.8-10.44); Carbon Dioxide 27 mmol/L (22-29); Chloride 102 mmol/L (98-107); Glucose 297 mg/dL (70-105); Sodium 136 mmol/L (136-145)
[2022-04-08 08:35] VITALS: BP 124/80; TEMP 98.5
[2022-04-08] MEDS: Dextrose 5 %-0.45 % NaCl 1,000 ML IV SCH (08:48)
[2022-04-08] MEDS: Dicyclomine 10 MG CAP PO SCH ×2 (08:48→14:17)
[2022-04-08] MEDS: Aspirin Chewable 81 MG TAB PO SCH (08:48)
[2022-04-08] MEDS: Lansoprazole 3 MG/ML ORAL SUSPENSION PER TUBE SCH (08:49)
[2022-04-08] MEDS: Metoprolol Tartrate 25 MG TAB PO SCH (08:49)
[2022-04-08] MEDS: Enoxaparin Sodium 40 MG/0.4 ML SYRINGE SC SCH (08:49)
[2022-04-08] MEDS: Lisinopril 20 MG TAB PO SCH (08:49)
[2022-04-08] MEDS ORDERED: Cepastat Lozenges 1 LOZ PO PRN (09:01)
== END 2022-04-08 14:27 | disposition home or self-care (01) | DRG 885 ==
LOC: ERS 23:08 → ERHOLD 04-03 02:55 → 2NO 04-03 13:31 → T4-B 04-06 16:42
PROVIDERS: ADMIT Internal Medicine; ATTEND Internal Medicine
DX: F23 Brief psychotic disorder (principal); J69.0 Pneumonitis due to inhalation of food and vomit; R45.851 Suicidal ideations; N17.9 Acute kidney failure, unspecified; G93.40 Encephalopathy, unspecified; Z20.822 Contact with and (suspected) exposure to COVID-19; R13.10 Dysphagia, unspecified; F31.9 Bipolar disorder, unspecified; E11.9 Type 2 diabetes mellitus without complications; I10 Essential (primary) hypertension; E78.5 Hyperlipidemia, unspecified; E78.00 Pure hypercholesterolemia, unspecified; K21.9 Gastro-esophageal reflux disease without esophagitis; F41.9 Anxiety disorder, unspecified; R13.12 Dysphagia, oropharyngeal phase; E87.6 Hypokalemia; Z79.82 Long term (current) use of aspirin; I69.391 Dysphagia following cerebral infarction; Z90.49 Acquired absence of other specified parts of digestive tract; Z93.1 Gastrostomy status; Z88.8 Allergy status to other drugs, medicaments and biological substances; Z79.84 Long term (current) use of oral hypoglycemic drugs; Z79.4 Long term (current) use of insulin; Z79.899 Other long term (current) drug therapy; Z78.1 Physical restraint status
CPT/HCPCS: 36415; 36416; 70450; 71045; 80048; 80053; 80061; 80306; 80307; 81003; 82140; 82553; 82805; 83605; 83735; 84145; 84484; 85025; 85610; 85730; 87040; 87086; 93005; 93010; J0360; J0692; J1200; J1630; J1650; J1815; J2060; J2358; J3370; J3475; J3480; J3490; J7042; J7050; U0002

== ENCOUNTER 2022-08-15 20:41 | Inpatient (IN) | payer MEDICAID, SELFPAY ==
[2022-08-15] MEDS ORDERED: Albuterol Sulfate 2.5 mg/3 ml Neb ONE (21:20)
[2022-08-15] MEDS ORDERED: cefTRIAXone\\ROCEPHIN 2 GM VIAL ONE (21:25)
[2022-08-15] MEDS ORDERED: Acetaminophen 500 MG TAB ONE (21:51)
[2022-08-15 21:56] LABS: Mean Corpuscular HGB CONC 31.1 g/dL (32.0-36.0); Mean Corpuscular Hemoglobin 27.5 pg (27.0-31.0); Mean Corpuscular Volume 88.6 fL (78.0-98.0); Mean Platelet Volume 7.7 fL (7.4-10.4); Platelet Count 548 thou/uL (130-400); Red Blood Cell (RBC) Count 4.36 mill/uL (4.20-5.40); White Blood Cell (WBC) Count 29.8 thou/uL (4.8-10.8)
[2022-08-15 22:10] LABS: Band 8 % (5-11); Lymphocytes 2 % (21-51); MDiff Complete? YES; Monocytes 2 % (0-10); Neutrophil 88 % (42-75); Platelet Morphology Comment Appears Increased; Vacuoles SLIGHT
[2022-08-15] MEDS ORDERED: Azithromycin 500 MG VIAL ONE (22:18)
[2022-08-15] MEDS ORDERED: Acetaminophen 325 MG TAB PER TUBE PRN (22:27)
[2022-08-15] MEDS ORDERED: Ondansetron PF 4 MG/2 ML Vial IVP PRN (22:27)
[2022-08-15] MEDS ORDERED: Acetaminophen 650 MG Suppository PR PRN (22:27)
[2022-08-15] MEDS ORDERED: Senokot S 8.6-50 MG TAB PER TUBE PRN (22:27)
[2022-08-15] MEDS ORDERED: Benzonatate 100 MG CAP PO PRN (22:33)
[2022-08-15] MEDS ORDERED: Guaifenesin DM 100-10/5 ML UDCUP PER TUBE PRN (22:33)
[2022-08-15] MEDS ORDERED: Dextrose 50% Abboject 50 ML SYRINGE SLOW IVP PRN (22:57)
[2022-08-15] MEDS ORDERED: HumaLOG 300 UNITS/3 ML VIAL SC PRN (22:57)
[2022-08-15] MEDS ORDERED: Midazolam HCl 2 mg/2 ml Vial SLOW IVP PRN (22:59)
[2022-08-15 23:06] LABS: ALT (SGPT) Less than 7 U/L (8-55); AST (SGOT) 13 U/L (5-34); Alkaline Phosphatase 117 U/L (40-110); Anion Gap 14 mmol/L (10-20); BUN (Urea Nitrogen) 20 mg/dL (9.8-20.1); Bilirubin, Total 0.7 mg/dL (0.2-1.2); CK (CPK) 19 U/L (29-168); Calc. Creatinine Clearance 0 mL/min (70-130); Calcium 9.2 mg/dL (7.8-10.44); Carbon Dioxide 26 mmol/L (22-29); Chloride 101 mmol/L (98-107); Estimated GFR 57; Globulin 4.9 g/dL (2.4-3.5); Glucose 269 mg/dL (70-105); Potassium 5.2 mmol/L (3.5-5.1); Protein, Total 7.9 g/dL (6.0-8.3); Sodium 136 mmol/L (136-145)
[2022-08-15 23:38] LABS: SARS-CoV-2 NAA Rapid Test Not Detected (NotDetected)
[2022-08-15 23:57] LABS: CKMB 0.4 ng/mL (0-6.6)
[2022-08-16] MEDS: Sodium Chloride 0.9% 1,000 ML IV SCH ×2 (01:24→09:43)
[2022-08-16] MEDS ORDERED: Vancomycin HCl 750 MG in Sodium Chloride 0.9% 250 ML 250 ML IVPB SCH (02:00)
[2022-08-16] MEDS ORDERED: Piperacillin/Tazobactam 3.375 GM in Sodium Chloride 0.9% 100 ML IVPB SCH (03:00)
[2022-08-16 04:59] LABS: ALT (SGPT) Less than 7 U/L (8-55); AST (SGOT) 12 U/L (5-34); Albumin 2.1 g/dL (3.5-5.0); Alkaline Phosphatase 90 U/L (40-110); Anion Gap 10 mmol/L (10-20); BUN (Urea Nitrogen) 19 mg/dL (9.8-20.1); Band 10 % (5-11); Bilirubin, Total 0.3 mg/dL (0.2-1.2); Calc. Creatinine Clearance 39 mL/min (70-130); Carbon Dioxide 23 mmol/L (22-29); Chloride 105 mmol/L (98-107); Estimated GFR 82; Globulin 3.9 g/dL (2.4-3.5); Glucose 235 mg/dL (70-105); Lymphocytes 6 % (21-51); MDiff Complete? YES; Mean Corpuscular Hemoglobin 27.3 pg (27.0-31.0); Mean Corpuscular Volume 88.1 fL (78.0-98.0); Mean Platelet Volume 7.5 fL (7.4-10.4); Monocytes 3 % (0-10); Neutrophil 81 % (42-75); Platelet Count 456 thou/uL (130-400); Platelet Morphology Comment Appears Increased; Potassium 4.3 mmol/L (3.5-5.1); RBC Distribution Width 16.8 % (11.5-14.5); Red Blood Cell (RBC) Count 3.27 mill/uL (4.20-5.40); Sodium 134 mmol/L (136-145); White Blood Cell (WBC) Count 35.5 thou/uL (4.8-10.8)
[2022-08-16] MEDS ORDERED: Lactated Ringer's 500 ML IV SCH (08:15)
[2022-08-16] MEDS ORDERED: FLU VACC QS2022-23(6MOS UP)/PF 60 MCG/0.5 ML SYRINGE IM ONE (09:00)
[2022-08-16] MEDS ORDERED: Famotidine/PF 20 mg/2ml Vial SLOW IVP SCH (09:00)
[2022-08-16] MEDS ORDERED: metFORMIN 500 MG TAB PO SCH (09:00)
[2022-08-16] MEDS: Piperacillin/Tazobactam 3.375 GM in Sodium Chloride 0.9% 100 ML IVPB SCH ×2 (09:42→14:21)
[2022-08-16] MEDS: Aspirin Chewable 81 MG TAB PO SCH (09:44)
[2022-08-16] MEDS: Heparin 5,000 UNITS/ML VIAL SC SCH ×3 (09:44→17:32)
[2022-08-16 12:50] LABS: Mean Corpuscular HGB CONC 30.9 g/dL (32.0-36.0); Mean Corpuscular Hemoglobin 27.4 pg (27.0-31.0); Mean Corpuscular Volume 88.6 fL (78.0-98.0); Mean Platelet Volume 7.3 fL (7.4-10.4); Platelet Count 492 thou/uL (130-400); White Blood Cell (WBC) Count 28.5 thou/uL (4.8-10.8)
[2022-08-16 12:51] LABS: Anisocytosis SLIGHT = 6-15 cells (100X) (0-5/hpf); Band 7 % (5-11); Burr Cells SLIGHT = 2-5 cells (100X) (0-1/hpf); Hypochromia SLIGHT = 6-15 cells (100X) (0-5/hpf); Lymphocytes 8 % (21-51); MDiff Complete? YES; Monocytes 2 % (0-10); Neutrophil 82 % (42-75); Ovalocytes SLIGHT = 2-5 cells (100X) (0-1/hpf); Platelet Morphology Comment Appears Increased; Polychromasia SLIGHT = 2-3 cells (100X) (0-2/hpf); Reactive Lymphocytes 1 % (0-10); Target Cells SLIGHT = 2-5 cells (100X) (0-1/hpf)
[2022-08-16] MEDS ORDERED: Lactated Ringer's 1,000 ML IV SCH (18:15)
[2022-08-17] MEDS: Piperacillin/Tazobactam 3.375 GM in Sodium Chloride 0.9% 100 ML IVPB SCH ×3 (00:49→17:14)
[2022-08-17] MEDS: Scopolamine 1.5 mg/72 hour Patch TD SCH (00:50)
[2022-08-17] MEDS: Vancomycin HCl 500 MG in Sodium Chloride 0.9% 100 ML IVPB SCH (03:19)
[2022-08-17 03:59] LABS: Anion Gap 11 mmol/L (10-20); BUN (Urea Nitrogen) 13 mg/dL (9.8-20.1); Calc. Creatinine Clearance 45 mL/min (70-130); Calcium 8.7 mg/dL (7.8-10.44); Carbon Dioxide 25 mmol/L (22-29); Chloride 104 mmol/L (98-107); Estimated GFR 96; Glucose 79 mg/dL (70-105); Potassium 3.8 mmol/L (3.5-5.1); Sodium 136 mmol/L (136-145)
[2022-08-17 04:23] LABS: Band 6 % (5-11); Hemoglobin 9.7 g/dL (12.0-16.0); Lymphocytes 10 % (21-51); MDiff Complete? YES; Mean Corpuscular HGB CONC 31.1 g/dL (32.0-36.0); Mean Corpuscular Hemoglobin 27.4 pg (27.0-31.0); Mean Platelet Volume 7.3 fL (7.4-10.4); Monocytes 2 % (0-10); Neutrophil 81 % (42-75); Platelet Count 528 thou/uL (130-400); RBC Distribution Width 16.9 % (11.5-14.5); Red Blood Cell (RBC) Count 3.52 mill/uL (4.20-5.40); White Blood Cell (WBC) Count 25.3 thou/uL (4.8-10.8)
[2022-08-17] MEDS: Dextrose 5% in Water 1,000 ML IV PRN ×2 (06:14→18:43)
[2022-08-17] MEDS ORDERED: Phenylephrine 0.25% Nasal Spray 15 ML BOT ONE (09:36)
[2022-08-17] MEDS ORDERED: GASTROGRAFIN 30 ML BOT ONE (10:03)
[2022-08-17] MEDS: Aspirin Chewable 81 MG TAB PO SCH (10:44)
[2022-08-17] MEDS: Famotidine/PF 20 mg/2ml Vial SLOW IVP SCH (10:45)
[2022-08-17] MEDS: Heparin 5,000 UNITS/ML VIAL SC SCH ×3 (10:46→22:20)
[2022-08-17] MEDS: Sodium Chloride 3% (15 ML) NEB NEB SCH ×2 (13:53→18:32)
[2022-08-17] MEDS: Dextrose 5% in Water 1,000 ML IV SCH (22:20)
[2022-08-18] MEDS: Vancomycin HCl 500 MG in Sodium Chloride 0.9% 100 ML IVPB SCH ×2 (01:09→15:24)
[2022-08-18] MEDS: Piperacillin/Tazobactam 3.375 GM in Sodium Chloride 0.9% 100 ML IVPB SCH ×3 (01:09→15:24)
[2022-08-18 02:01] LABS: Vancomycin, Trough 7.9 ug/mL
[2022-08-18] MEDS: Sodium Chloride 3% (15 ML) NEB NEB SCH ×3 (07:03→18:39)
[2022-08-18 08:06] LABS: #Basophils 0.1 thou/uL (0.0-0.2); #Eosinphils 0.1 thou/uL (0.0-0.7); #Lymphocytes 3.2 thou/uL (1.20-3.40); #Neutrophils 13.1 thou/uL (1.40-6.50); %Basophils 0.5 % (0.0-1.0); %Eosinophils 0.7 % (0.0-10.0); %Lymphocytes 18.1 % (21.0-51.0); %Monocytes 5.7 % (0.0-10.0); Hemoglobin 10.2 g/dL (12.0-16.0); Mean Corpuscular HGB CONC 31.7 g/dL (32.0-36.0); Mean Corpuscular Hemoglobin 27.1 pg (27.0-31.0); Mean Corpuscular Volume 85.5 fL (78.0-98.0); Platelet Count 584 thou/uL (130-400); RBC Distribution Width 16.2 % (11.5-14.5); Red Blood Cell (RBC) Count 3.76 mill/uL (4.20-5.40); White Blood Cell (WBC) Count 17.4 thou/uL (4.8-10.8)
[2022-08-18 08:29] LABS: Anion Gap 10 mmol/L (10-20); BUN (Urea Nitrogen) 7 mg/dL (9.8-20.1); Calc. Creatinine Clearance 51 mL/min (70-130); Calcium 8.2 mg/dL (7.8-10.44); Carbon Dioxide 25 mmol/L (22-29); Chloride 95 mmol/L (98-107); Estimated GFR 101; Glucose 162 mg/dL (70-105); Magnesium 1.2 mg/dL (1.6-2.6); Sodium 127 mmol/L (136-145)
[2022-08-18 08:33] LABS: Potassium 2.8 mmol/L (3.5-5.1)
[2022-08-18] MEDS: Famotidine/PF 20 mg/2ml Vial SLOW IVP SCH (09:09)
[2022-08-18] MEDS: Heparin 5,000 UNITS/ML VIAL SC SCH ×3 (09:09→21:33)
[2022-08-18] MEDS: Potassium Chloride 20 MEQ in Premix Bag 1 BAG IVPB SCH ×2 (09:40→13:06)
[2022-08-18] MEDS: Aspirin Chewable 81 MG TAB PO SCH (09:41)
[2022-08-18] MEDS ORDERED: Loperamide HCl 2 MG CAP PO PRN (09:55)
[2022-08-18] MEDS: Dextrose 5% in Water 1,000 ML IV SCH (16:54)
[2022-08-18 19:08] LABS: Potassium 3.2 mmol/L (3.5-5.1)
[2022-08-18] MEDS ORDERED: Scopolamine 1.5 mg/72 hour Patch TD SCH (23:59)
[2022-08-19] MEDS: Piperacillin/Tazobactam 3.375 GM in Sodium Chloride 0.9% 100 ML IVPB SCH ×3 (00:25→14:12)
[2022-08-19] MEDS: Vancomycin HCl 500 MG in Sodium Chloride 0.9% 100 ML IVPB SCH (03:07)
[2022-08-19 04:23] LABS: #Basophils 0.1 thou/uL (0.0-0.2); #Eosinphils 0.2 thou/uL (0.0-0.7); #Lymphocytes 3.3 thou/uL (1.20-3.40); #Neutrophils 9.7 thou/uL (1.40-6.50); %Basophils 0.5 % (0.0-1.0); %Eosinophils 1.2 % (0.0-10.0); %Lymphocytes 22.9 % (21.0-51.0); %Monocytes 7.2 % (0.0-10.0); %Neutrophils 68.2 % (42.0-75.0); Hemoglobin 11.2 g/dL (12.0-16.0); Mean Corpuscular HGB CONC 32.2 g/dL (32.0-36.0); Mean Corpuscular Hemoglobin 27.9 pg (27.0-31.0); Mean Corpuscular Volume 86.6 fL (78.0-98.0); Mean Platelet Volume 7.2 fL (7.4-10.4); Platelet Count 626 thou/uL (130-400); RBC Distribution Width 16.3 % (11.5-14.5); Red Blood Cell (RBC) Count 4.01 mill/uL (4.20-5.40); White Blood Cell (WBC) Count 14.2 thou/uL (4.8-10.8)
[2022-08-19 04:36] LABS: Anion Gap 11 mmol/L (10-20); BUN (Urea Nitrogen) 4 mg/dL (9.8-20.1); Calc. Creatinine Clearance 51 mL/min (70-130); Calcium 8.7 mg/dL (7.8-10.44); Carbon Dioxide 24 mmol/L (22-29); Chloride 97 mmol/L (98-107); Estimated GFR 101; Glucose 112 mg/dL (70-105); Potassium 3.1 mmol/L (3.5-5.1); Sodium 129 mmol/L (136-145)
[2022-08-19] MEDS: Sodium Chloride 3% (15 ML) NEB NEB SCH ×3 (06:20→18:37)
[2022-08-19] MEDS: Pantoprazole 40 MG VIAL IVP SCH ×2 (08:02→21:10)
[2022-08-19] MEDS: Heparin 5,000 UNITS/ML VIAL SC SCH ×3 (08:03→21:10)
[2022-08-19] MEDS: Calcium Polycarbophil 625 MG TAB PO SCH (08:03)
[2022-08-19] MEDS: Potassium Chloride 20 MEQ TAB PO SCH (08:03)
[2022-08-19] MEDS: Aspirin Chewable 81 MG TAB PO SCH (08:03)
[2022-08-19] MEDS ORDERED: GASTROGRAFIN 30 ML BOT ONE (12:20)
[2022-08-19] MEDS ORDERED: MD-Gastroview 120 ML BOT ONE (12:20)
[2022-08-19 13:37] VITALS: BMI 13.6
[2022-08-19] MEDS: Dextrose 5% in Water 1,000 ML IV SCH (14:12)
[2022-08-20] MEDS: Piperacillin/Tazobactam 3.375 GM in Sodium Chloride 0.9% 100 ML IVPB SCH ×3 (00:32→16:54)
[2022-08-20 02:00] LABS: #Eosinphils 0.2 thou/uL (0.0-0.7); #Lymphocytes 3.5 thou/uL (1.20-3.40); #Monocytes 0.8 thou/uL (0.11-0.59); #Neutrophils 5.1 thou/uL (1.40-6.50); %Eosinophils 1.7 % (0.0-10.0); %Lymphocytes 36.6 % (21.0-51.0); %Monocytes 8.4 % (0.0-10.0); %Neutrophils 53.4 % (42.0-75.0); Hemoglobin 10.4 g/dL (12.0-16.0); Mean Corpuscular HGB CONC 31.7 g/dL (32.0-36.0); Mean Corpuscular Hemoglobin 27.4 pg (27.0-31.0); Mean Corpuscular Volume 86.2 fL (78.0-98.0); Mean Platelet Volume 6.9 fL (7.4-10.4); Platelet Count 654 thou/uL (130-400); RBC Distribution Width 16.4 % (11.5-14.5); Red Blood Cell (RBC) Count 3.79 mill/uL (4.20-5.40); White Blood Cell (WBC) Count 9.6 thou/uL (4.8-10.8)
[2022-08-20] MEDS: Scopolamine 1.5 mg/72 hour Patch TD SCH (02:16)
[2022-08-20 02:35] LABS: Magnesium 1.4 mg/dL (1.6-2.6)
[2022-08-20 03:04] LABS: Anion Gap 11 mmol/L (10-20); BUN (Urea Nitrogen) Less than 4 mg/dL (9.8-20.1); Calc. Creatinine Clearance 51 mL/min (70-130); Calcium 8.6 mg/dL (7.8-10.44); Carbon Dioxide 28 mmol/L (22-29); Chloride 98 mmol/L (98-107); Estimated GFR 101; Glucose 114 mg/dL (70-105); Sodium 134 mmol/L (136-145)
[2022-08-20 03:14] LABS: Potassium 2.6 mmol/L (3.5-5.1)
[2022-08-20] MEDS ORDERED: Electrolyte Replacement Protocol FS PRN (03:30)
[2022-08-20] MEDS: Potassium Chloride 20 MEQ in Premix Bag 1 BAG IVPB SCH ×4 (03:46→13:00)
[2022-08-20] MEDS ORDERED: Magnesium Sulfate 4 GM in Sodium Chloride 0.9% 250 ML 250 ML IVPB SCH (04:00)
[2022-08-20] MEDS: Sodium Chloride 3% (15 ML) NEB NEB SCH ×3 (08:04→18:31)
[2022-08-20] MEDS ORDERED: Loperamide HCl 2 MG CAP PER TUBE PRN (09:43)
[2022-08-20] MEDS: Aspirin Chewable 81 MG TAB PO SCH (09:52)
[2022-08-20] MEDS: Potassium Chloride 20 MEQ TAB PO SCH ×2 (09:52→16:58)
[2022-08-20] MEDS: Calcium Polycarbophil 625 MG TAB PO SCH (09:52)
[2022-08-20] MEDS: Heparin 5,000 UNITS/ML VIAL SC SCH ×3 (09:52→21:22)
[2022-08-20] MEDS: Pantoprazole 40 MG VIAL IVP SCH ×2 (09:56→21:22)
[2022-08-20] MEDS: Dextrose 5% in Water 1,000 ML IV SCH ×2 (10:10→21:14)
[2022-08-20] MEDS: Potassium Chloride 20 MEQ TAB PER TUBE SCH ×2 (11:15→15:09)
[2022-08-20] MEDS: Metoclopramide HCl 10 MG/2 ML VIAL IVP SCH ×2 (16:54→21:23)
[2022-08-20] MEDS: cefTRIAXone\\ROCEPHIN 1 GM in Sodium Chloride 0.9% 100 ML IVPB SCH (21:15)
[2022-08-20] MEDS: Potassium Bicarbonate/Cit Ac 20 MEQ TAB PO SCH (21:24)
[2022-08-21] MEDS: Potassium Bicarbonate/Cit Ac 20 MEQ TAB PO SCH ×2 (00:49→02:54)
[2022-08-21 04:22] LABS: #Eosinphils 0.1 thou/uL (0.0-0.7); #Lymphocytes 2.4 thou/uL (1.20-3.40); #Monocytes 0.9 thou/uL (0.11-0.59); #Neutrophils 6.3 thou/uL (1.40-6.50); %Basophils 0.4 % (0.0-1.0); %Eosinophils 1.2 % (0.0-10.0); %Lymphocytes 24.8 % (21.0-51.0); %Monocytes 8.8 % (0.0-10.0); %Neutrophils 64.8 % (42.0-75.0); Hemoglobin 10.4 g/dL (12.0-16.0); Mean Corpuscular Hemoglobin 27.6 pg (27.0-31.0); Platelet Count 652 thou/uL (130-400); RBC Distribution Width 17.1 % (11.5-14.5); Red Blood Cell (RBC) Count 3.75 mill/uL (4.20-5.40); White Blood Cell (WBC) Count 9.8 thou/uL (4.8-10.8)
[2022-08-21 04:41] LABS: Anion Gap 12 mmol/L (10-20); BUN (Urea Nitrogen) Less than 4 mg/dL (9.8-20.1); Calc. Creatinine Clearance 51 mL/min (70-130); Calcium 8.5 mg/dL (7.8-10.44); Carbon Dioxide 24 mmol/L (22-29); Chloride 100 mmol/L (98-107); Estimated GFR 101; Glucose 116 mg/dL (70-105); Potassium 4.8 mmol/L (3.5-5.1); Sodium 131 mmol/L (136-145)
[2022-08-21] MEDS: Metoclopramide HCl 10 MG/2 ML VIAL IVP SCH ×3 (06:26→17:02)
[2022-08-21] MEDS: Sodium Chloride 3% (15 ML) NEB NEB SCH ×3 (06:58→19:23)
[2022-08-21] MEDS: Heparin 5,000 UNITS/ML VIAL SC SCH ×3 (10:01→20:37)
[2022-08-21] MEDS: Pantoprazole 40 MG VIAL IVP SCH ×2 (10:01→20:37)
[2022-08-21] MEDS: Potassium Chloride 20 MEQ TAB PO SCH (12:48)
[2022-08-21] MEDS: Aspirin Chewable 81 MG TAB PO SCH (12:49)
[2022-08-21] MEDS: Calcium Polycarbophil 625 MG TAB PO SCH (12:49)
[2022-08-21] MEDS: cefTRIAXone\\ROCEPHIN 1 GM in Sodium Chloride 0.9% 100 ML IVPB SCH (20:37)
[2022-08-22] MEDS: Dextrose 5% in Water 1,000 ML IV SCH (00:39)
[2022-08-22] MEDS: Metoclopramide HCl 10 MG/2 ML VIAL IVP SCH ×4 (00:39→17:31)
[2022-08-22 04:12] LABS: #Basophils 0.1 thou/uL (0.0-0.2); #Eosinphils 0.2 thou/uL (0.0-0.7); #Lymphocytes 2.7 thou/uL (1.20-3.40); #Monocytes 1.1 thou/uL (0.11-0.59); #Neutrophils 9.8 thou/uL (1.40-6.50); %Basophils 0.5 % (0.0-1.0); %Eosinophils 1.6 % (0.0-10.0); %Lymphocytes 19.3 % (21.0-51.0); %Neutrophils 70.7 % (42.0-75.0); Hemoglobin 9.8 g/dL (12.0-16.0); Mean Corpuscular Hemoglobin 27.2 pg (27.0-31.0); Mean Corpuscular Volume 87.7 fL (78.0-98.0); Mean Platelet Volume 7.2 fL (7.4-10.4); Platelet Count 591 thou/uL (130-400); RBC Distribution Width 17.1 % (11.5-14.5); Red Blood Cell (RBC) Count 3.59 mill/uL (4.20-5.40); White Blood Cell (WBC) Count 13.8 thou/uL (4.8-10.8)
[2022-08-22 04:28] LABS: Anion Gap 11 mmol/L (10-20); BUN (Urea Nitrogen) 4 mg/dL (9.8-20.1); Calc. Creatinine Clearance 49 mL/min (70-130); Calcium 8.7 mg/dL (7.8-10.44); Carbon Dioxide 25 mmol/L (22-29); Chloride 101 mmol/L (98-107); Estimated GFR 100; Glucose 131 mg/dL (70-105); Potassium 4.1 mmol/L (3.5-5.1); Sodium 133 mmol/L (136-145)
[2022-08-22] MEDS: Sodium Chloride 3% (15 ML) NEB NEB SCH ×3 (07:29→18:48)
[2022-08-22] MEDS: Potassium Chloride 20 MEQ TAB PO SCH (07:34)
[2022-08-22] MEDS: Aspirin Chewable 81 MG TAB PO SCH (07:34)
[2022-08-22] MEDS: Calcium Polycarbophil 625 MG TAB PO SCH (07:35)
[2022-08-22] MEDS: Heparin 5,000 UNITS/ML VIAL SC SCH ×3 (08:47→21:08)
[2022-08-22] MEDS: Pantoprazole 40 MG VIAL IVP SCH ×2 (08:48→21:08)
[2022-08-22] MEDS: cefTRIAXone\\ROCEPHIN 1 GM in Sodium Chloride 0.9% 100 ML IVPB SCH (21:08)
[2022-08-23] MEDS: Scopolamine 1.5 mg/72 hour Patch TD SCH (00:39)
[2022-08-23] MEDS: Metoclopramide HCl 10 MG/2 ML VIAL IVP SCH ×4 (00:40→18:29)
[2022-08-23] MEDS: Sodium Chloride 3% (15 ML) NEB NEB SCH ×3 (06:05→18:35)
[2022-08-23 06:51] LABS: #Basophils 0.1 thou/uL (0.0-0.2); #Eosinphils 0.2 thou/uL (0.0-0.7); #Lymphocytes 2.9 thou/uL (1.20-3.40); #Monocytes 0.8 thou/uL (0.11-0.59); #Neutrophils 6.2 thou/uL (1.40-6.50); %Eosinophils 1.5 % (0.0-10.0); %Lymphocytes 28.4 % (21.0-51.0); %Monocytes 8.3 % (0.0-10.0); %Neutrophils 60.8 % (42.0-75.0); Hemoglobin 9.7 g/dL (12.0-16.0); Mean Corpuscular HGB CONC 29.8 g/dL (32.0-36.0); Mean Corpuscular Hemoglobin 26.7 pg (27.0-31.0); Mean Corpuscular Volume 89.8 fL (78.0-98.0); Mean Platelet Volume 6.8 fL (7.4-10.4); Platelet Count 600 thou/uL (130-400); RBC Distribution Width 17.5 % (11.5-14.5); Red Blood Cell (RBC) Count 3.62 mill/uL (4.20-5.40); White Blood Cell (WBC) Count 10.1 thou/uL (4.8-10.8)
[2022-08-23 07:07] LABS: Anion Gap 8 mmol/L (10-20); BUN (Urea Nitrogen) 6 mg/dL (9.8-20.1); Calc. Creatinine Clearance 47 mL/min (70-130); Carbon Dioxide 30 mmol/L (22-29); Chloride 100 mmol/L (98-107); Estimated GFR 97; Glucose 121 mg/dL (70-105); Potassium 4.4 mmol/L (3.5-5.1); Sodium 134 mmol/L (136-145)
[2022-08-23] MEDS: Potassium Chloride 20 MEQ TAB PO SCH (07:56)
[2022-08-23] MEDS: Aspirin Chewable 81 MG TAB PO SCH (07:56)
[2022-08-23] MEDS: Calcium Polycarbophil 625 MG TAB PO SCH (07:56)
[2022-08-23] MEDS: Heparin 5,000 UNITS/ML VIAL SC SCH ×3 (08:00→20:41)
[2022-08-23] MEDS: Pantoprazole 40 MG VIAL IVP SCH ×2 (08:00→20:41)
[2022-08-23] MEDS: Dextrose 5% in Water 1,000 ML IV SCH (08:00)
[2022-08-23] MEDS: cefTRIAXone\\ROCEPHIN 1 GM in Sodium Chloride 0.9% 100 ML IVPB SCH (20:41)
[2022-08-24] MEDS: Metoclopramide HCl 10 MG/2 ML VIAL IVP SCH ×4 (02:37→17:09)
[2022-08-24 03:59] LABS: #Basophils 0.1 thou/uL (0.0-0.2); #Eosinphils 0.2 thou/uL (0.0-0.7); #Lymphocytes 2.8 thou/uL (1.20-3.40); #Monocytes 0.9 thou/uL (0.11-0.59); #Neutrophils 10.4 thou/uL (1.40-6.50); %Basophils 0.6 % (0.0-1.0); %Eosinophils 1.5 % (0.0-10.0); %Lymphocytes 19.5 % (21.0-51.0); %Monocytes 6.1 % (0.0-10.0); %Neutrophils 72.3 % (42.0-75.0); Hemoglobin 9.7 g/dL (12.0-16.0); Mean Corpuscular Hemoglobin 27.6 pg (27.0-31.0); Mean Platelet Volume 7.3 fL (7.4-10.4); Platelet Count 551 thou/uL (130-400); RBC Distribution Width 17.4 % (11.5-14.5); Red Blood Cell (RBC) Count 3.51 mill/uL (4.20-5.40); White Blood Cell (WBC) Count 14.4 thou/uL (4.8-10.8)
[2022-08-24 04:08] LABS: Anion Gap 10 mmol/L (10-20); BUN (Urea Nitrogen) 8 mg/dL (9.8-20.1); Calc. Creatinine Clearance 52 mL/min (70-130); Calcium 8.9 mg/dL (7.8-10.44); Carbon Dioxide 27 mmol/L (22-29); Chloride 100 mmol/L (98-107); Estimated GFR 101; Glucose 143 mg/dL (70-105); Potassium 4.2 mmol/L (3.5-5.1); Sodium 133 mmol/L (136-145)
[2022-08-24] MEDS: Dextrose 5% in Water 1,000 ML IV SCH (05:34)
[2022-08-24] MEDS: Sodium Chloride 3% (15 ML) NEB NEB SCH ×3 (07:57→18:32)
[2022-08-24] MEDS: Potassium Chloride 20 MEQ TAB PO SCH (08:54)
[2022-08-24] MEDS: Aspirin Chewable 81 MG TAB PO SCH (08:54)
[2022-08-24] MEDS: Heparin 5,000 UNITS/ML VIAL SC SCH ×3 (08:55→21:59)
[2022-08-24] MEDS: Pantoprazole 40 MG VIAL IVP SCH ×2 (08:56→21:59)
[2022-08-24] MEDS: Calcium Polycarbophil 625 MG TAB PO SCH (08:56)
[2022-08-24 14:03] LABS: Potassium 4.5 mmol/L (3.5-5.1)
[2022-08-24] MEDS: cefTRIAXone\\ROCEPHIN 1 GM in Sodium Chloride 0.9% 100 ML IVPB SCH (21:58)
[2022-08-25] MEDS: Dextrose 5% in Water 1,000 ML IV SCH ×2 (00:15→17:10)
[2022-08-25] MEDS: Metoclopramide HCl 10 MG/2 ML VIAL IVP SCH ×4 (00:15→17:35)
[2022-08-25 05:45] LABS: #Basophils 0.1 thou/uL (0.0-0.2); #Eosinphils 0.2 thou/uL (0.0-0.7); #Monocytes 0.8 thou/uL (0.11-0.59); #Neutrophils 6.7 thou/uL (1.40-6.50); %Eosinophils 1.9 % (0.0-10.0); %Lymphocytes 28.1 % (21.0-51.0); %Monocytes 7.2 % (0.0-10.0); %Neutrophils 61.8 % (42.0-75.0); Mean Corpuscular HGB CONC 30.5 g/dL (32.0-36.0); Mean Corpuscular Hemoglobin 27.8 pg (27.0-31.0); Mean Corpuscular Volume 91.1 fL (78.0-98.0); Mean Platelet Volume 6.8 fL (7.4-10.4); Platelet Count 524 thou/uL (130-400); RBC Distribution Width 17.7 % (11.5-14.5); Red Blood Cell (RBC) Count 3.62 mill/uL (4.20-5.40); White Blood Cell (WBC) Count 10.8 thou/uL (4.8-10.8)
[2022-08-25 06:15] LABS: Anion Gap 9 mmol/L (10-20); BUN (Urea Nitrogen) 10 mg/dL (9.8-20.1); Calc. Creatinine Clearance 48 mL/min (70-130); Calcium 9.2 mg/dL (7.8-10.44); Carbon Dioxide 28 mmol/L (22-29); Chloride 100 mmol/L (98-107); Estimated GFR 99; Glucose 131 mg/dL (70-105); Potassium 4.4 mmol/L (3.5-5.1); Sodium 133 mmol/L (136-145)
[2022-08-25] MEDS: Sodium Chloride 3% (15 ML) NEB NEB SCH ×3 (07:23→18:59)
[2022-08-25] MEDS: Potassium Chloride 20 MEQ TAB PO SCH (09:41)
[2022-08-25] MEDS: Pantoprazole 40 MG VIAL IVP SCH ×2 (09:42→22:44)
[2022-08-25] MEDS: Heparin 5,000 UNITS/ML VIAL SC SCH ×3 (09:42→22:35)
[2022-08-25] MEDS: Aspirin Chewable 81 MG TAB PO SCH (09:42)
[2022-08-25] MEDS: Calcium Polycarbophil 625 MG TAB PO SCH (11:04)
[2022-08-25] MEDS: cefTRIAXone\\ROCEPHIN 1 GM in Sodium Chloride 0.9% 100 ML IVPB SCH (22:35)
[2022-08-26] MEDS: Metoclopramide HCl 10 MG/2 ML VIAL IVP SCH ×2 (00:44→05:50)
[2022-08-26] MEDS: Scopolamine 1.5 mg/72 hour Patch TD SCH (02:53)
[2022-08-26 05:17] LABS: #Basophils 0.2 thou/uL (0.0-0.2); #Eosinphils 0.2 thou/uL (0.0-0.7); #Lymphocytes 2.6 thou/uL (1.20-3.40); #Monocytes 0.9 thou/uL (0.11-0.59); #Neutrophils 6.9 thou/uL (1.40-6.50); %Basophils 1.5 % (0.0-1.0); %Eosinophils 2.3 % (0.0-10.0); %Lymphocytes 24.1 % (21.0-51.0); %Monocytes 8.4 % (0.0-10.0); %Neutrophils 63.7 % (42.0-75.0); Hemoglobin 9.9 g/dL (12.0-16.0); Mean Corpuscular HGB CONC 31.3 g/dL (32.0-36.0); Mean Corpuscular Hemoglobin 27.8 pg (27.0-31.0); Mean Corpuscular Volume 88.8 fL (78.0-98.0); Mean Platelet Volume 6.9 fL (7.4-10.4); Platelet Count 483 thou/uL (130-400); RBC Distribution Width 17.9 % (11.5-14.5); Red Blood Cell (RBC) Count 3.58 mill/uL (4.20-5.40); White Blood Cell (WBC) Count 10.8 thou/uL (4.8-10.8)
[2022-08-26 05:36] LABS: Anion Gap 11 mmol/L (10-20); BUN (Urea Nitrogen) 9 mg/dL (9.8-20.1); Calc. Creatinine Clearance 47 mL/min (70-130); Calcium 9.1 mg/dL (7.8-10.44); Carbon Dioxide 27 mmol/L (22-29); Chloride 99 mmol/L (98-107); Estimated GFR 97; Glucose 157 mg/dL (70-105); Potassium 4.5 mmol/L (3.5-5.1); Sodium 132 mmol/L (136-145)
[2022-08-26 08:00] VITALS: BP 106/67; TEMP 98.1
[2022-08-26] MEDS: Sodium Chloride 3% (15 ML) NEB NEB SCH ×2 (08:28→12:53)
[2022-08-26] MEDS: Calcium Polycarbophil 625 MG TAB PO SCH (09:44)
[2022-08-26] MEDS: Aspirin Chewable 81 MG TAB PO SCH (09:44)
[2022-08-26] MEDS: Pantoprazole 40 MG VIAL IVP SCH (09:44)
[2022-08-26] MEDS: Heparin 5,000 UNITS/ML VIAL SC SCH ×2 (09:46→14:49)
[2022-08-26] MEDS: Dextrose 5% in Water 1,000 ML IV SCH (10:16)
[2022-08-26] MEDS ORDERED: Metoclopramide 10 MG/10 ML UDCUP PER TUBE SCH (12:00)
[2022-08-26] MEDS ORDERED: Metoclopramide HCl 10 MG/2 ML VIAL IVP SCH (12:00)
== END 2022-08-26 17:50 | disposition home or self-care (01) | DRG 871 ==
LOC: SUATTDRO 20:41 → ERS 20:41 → IMCU/EMU 22:33 → MSONC 08-24 18:47
PROVIDERS: ADMIT Internal Medicine; ATTEND Internal Medicine
PROC: 5A09357 Assistance with Respiratory Ventilation, Less than 24 Consecutive Hours, Continuous Positive Airway Pressure (ICD-10-PCS; 2022-08-15)
PROC: 0D20XUZ Change Feeding Device in Upper Intestinal Tract, External Approach (ICD-10-PCS; principal; 2022-08-22)
DX: A41.9 Sepsis, unspecified organism (principal); E43 Unspecified severe protein-calorie malnutrition; J18.9 Pneumonia, unspecified organism; J69.0 Pneumonitis due to inhalation of food and vomit; J96.01 Acute respiratory failure with hypoxia; Z68.1 Body mass index [BMI] 19.9 or less, adult; I10 Essential (primary) hypertension; E78.5 Hyperlipidemia, unspecified; E87.5 Hyperkalemia; F41.9 Anxiety disorder, unspecified; F32.A Depression, unspecified; M19.90 Unspecified osteoarthritis, unspecified site; I69.391 Dysphagia following cerebral infarction; I69.320 Aphasia following cerebral infarction; E11.649 Type 2 diabetes mellitus with hypoglycemia without coma; Z20.822 Contact with and (suspected) exposure to COVID-19; R13.12 Dysphagia, oropharyngeal phase; E87.6 Hypokalemia; I69.398 Other sequelae of cerebral infarction; R53.1 Weakness; E11.43 Type 2 diabetes mellitus with diabetic autonomic (poly)neuropathy; K31.84 Gastroparesis; Z79.4 Long term (current) use of insulin; Z79.82 Long term (current) use of aspirin; Z79.899 Other long term (current) drug therapy
CPT/HCPCS: 36415; 36416; 71045; 74018; 74150; 74246; 80048; 80053; 80202; 82550; 82553; 83036; 83605; 83735; 83880; 84145; 84484; 85025; 87040; 87081; 87324; 87449; 87811; 93005; 94640; 94660; 96365; 96367; C9113; J0456; J0696; J1644; J2250; J2405; J2543; J2765; J3370; J3475; J3480; J3490; J7050; J7070; J7120; J7611; J7620; Q9963; S0028; U0002

== ENCOUNTER 2022-11-06 06:02 | Emergency (ER) | payer MEDICAID ==
[2022-11-06] MEDS ORDERED: MD-Gastroview 120 ML BOT ONE (13:13)
== END 2022-11-06 06:46 | disposition home or self-care (01) ==
LOC: ERS 06:02
DX: K94.23 Gastrostomy malfunction (principal); E78.00 Pure hypercholesterolemia, unspecified; E11.9 Type 2 diabetes mellitus without complications; I10 Essential (primary) hypertension
CPT/HCPCS: 43762; 74018; Q9963

== ENCOUNTER 2023-06-18 16:53 | Emergency (ER) | payer MEDICAID, SELFPAY ==
[2023-06-18] MEDS ORDERED: HYDROcodone/Acetaminophen 5/325 mg Tablet ONE (17:47)
== END 2023-06-18 19:26 | disposition home or self-care (01) ==
LOC: ERS 16:53
DX: S00.03XA Contusion of scalp, initial encounter (principal); E11.9 Type 2 diabetes mellitus without complications; E78.00 Pure hypercholesterolemia, unspecified; I10 Essential (primary) hypertension; W18.30XA Fall on same level, unspecified, initial encounter
CPT/HCPCS: 70450; 72125

== ENCOUNTER 2023-12-20 18:52 | Emergency (ER) | payer SELFPAY ==
[~2023-12-20 18:52] MED LIST: GASTROGRAFIN 30 ML BOT ONE
== END 2023-12-20 21:17 | disposition home or self-care (01) ==
LOC: ERS 18:52
DX: Z43.1 Encounter for attention to gastrostomy (principal); E11.9 Type 2 diabetes mellitus without complications; I10 Essential (primary) hypertension; Z86.73 Personal history of transient ischemic attack (TIA), and cerebral infarction without residual deficits
CPT/HCPCS: 74018; Q9963